=== PATIENT | female | born 1945 | race Two or more races ===

== ENCOUNTER 2017-06-21 17:41 | Inpatient (IN) | payer MEDICARE, MEDICAID ==
[~2017-06-21] VITALS: Ht 172.7 cm; Wt 74.8 kg
--- NOTE | 2017-06-21 17:59 | NUR ---
PT TO ED ROOM 06. BBRA FROM HOME. BIB RA FOR ALTERED MENTAL STATUS. CHANGED TO GOWN. SIDE RAISL UP. HOB ELEVATED. CONNECTED TO MONITOR. AWAITING EVALUATION BY ER PROVIDER.
[2017-06-21] MEDS ORDERED: IV NS 0.9% 500 ML BAG IV ONE (18:00)
--- NOTE | 2017-06-21 18:00 | NUR ---
XRAY AT BS
[2017-06-21 18:03] LABS: BASOPHILS # (AUTO) 0.1 /CMM (0.0-0.2); BASOPHILS % (AUTO) 1.1 % (0.0-2.0); EOSINOPHILS # (AUTO) 0.3 /CMM (0.0-0.7); EOSINOPHILS % (AUTO) 3.2 % (0.0-6.0); HEMATOCRIT 47 % (33-45); HEMOGLOBIN 16.5 g/dL (11.5-14.8); LYMPHOCYTES # (AUTO) 2.1 /CMM (0.8-4.8); LYMPHOCYTES % (AUTO) 19.6 % (20.0-44.0); MEAN CORPUSCULAR HEMOGLOBIN 33 PG (26.0-33.0); MEAN CORPUSCULAR HGB CONC 35 g/dl (31.0-36.0); MEAN CORPUSCULAR VOLUME 94 fL (82-100); MONOCYTES # (AUTO) 0.9 /CMM (0.1-1.30); MONOCYTES % (AUTO) 8.5 % (2.0-12.0); NEUTROPHILS # (AUTO) 7.5 /CMM (1.8-8.9); NEUTROPHILS % (AUTO) 67.6 % (43.0-81.0); PLATELET COUNT (AUTO) 228 /CMM (150-450); RDW COEFFICIENT OF VARIATION 12.6 (11.5-15.0); RED BLOOD CELL COUNT(AUTO) 5.01 MIL/uL (4.0-5.2); WHITE BLOOD COUNT (AUTO) 10.9 K/uL (4.3-11.0)
[2017-06-21 18:08] LABS: APPEARANCE,URINE Clear (CLEAR); BILIRUBIN,URINE SMALL (NEGATIVE); BLOOD, URINE Moderate Ery/uL (NEGATIVE); COLOR,URINE Yellow (YELLOW); KETONES,URINE 80 (NEGATIVE); LEUKOCYTE ESTERASE ,URINE Negative (NEGATIVE); NITRITE, URINE Negative (NEGATIVE); PH,URINE 5.5 (5.0-8.0); PROTEIN,URINE Negative (NEGATIVE); UGLUCOSE Negative (NEGATIVE); UROBILINOGEN,URINE 0.2 EU/dL (0.2)
[2017-06-21 18:13] LABS: CALCIUM, SERUM 9.6 mg/dL (8.5-10.1); CARBON DIOXIDE 24 mmol/L (21-32); CHLORIDE 93 mmol/L (98-107); CREATININE 0.7 mg/dL (0.6-1.3); GLUCOSE 107 mg/dL (74-106); POTASSIUM 4.6 mmol/L (3.5-5.1); SODIUM SERUM 126 mmol/L (136-145); UREA NITROGEN, BLOOD 14 mg/dL (7-18)
[2017-06-21 18:19] LABS: ALANINE AMINOTRANSFERASE 28 U/L (12-78); ALBUMIN 3.9 g/dL (3.4-5.0); ALCOHOL, BLOOD < 3 mg/dL (0-0); ALKALINE PHOSPHATASE 68 U/L (46-116); ASPARTATE AMINOTRANSFERASE 23 U/L (15-37); BILIRUBIN,DIRECT 0.1 mg/dL (0.0-0.2); BILIRUBIN,TOTAL 0.6 mg/dL (0.2-1.0); TOTAL PROTEIN, SERUM 7.7 g/dL (6.4-8.2)
[2017-06-21 18:20] LABS: TROPONIN I < 0.017 ng/mL (0.00-0.056)
[2017-06-21 18:22] LABS: BACTERIA,URINE None seen /HPF (None Seen); SQUAMOUS EPITHELIAL CELL,UR Few /HPF (None Seen); WBC,URINE 0-2 /HPF (0-3)
[2017-06-21] MEDS ORDERED: PRIM50TA PO (18:25)
[2017-06-21] MEDS ORDERED: TEMA30CA PO (18:25)
[2017-06-21] MEDS ORDERED: ASPI-1169 PO (18:25)
[2017-06-21] MEDS ORDERED: MYRBETRIQ PO (18:25)
[2017-06-21] MEDS ORDERED: DIVA500T7 PO (18:25)
[2017-06-21] MEDS ORDERED: SERT50TA PO (18:25)
[2017-06-21] MEDS ORDERED: LEVO500T90 PO (18:25)
[2017-06-21] MEDS ORDERED: PROP20TA22 PO (18:25)
[2017-06-21] MEDS ORDERED: ARIP5TAB20 PO (18:25)
[2017-06-21 18:35] LABS: ACETAMINOPHEN < 2 ug/ml (10-30); SALICYLATE 3.2 mg/dL (2.8-20.0)
[2017-06-21 18:39] LABS: SERUM AMMONIA < 10 umol/L (11-32)
--- NOTE | 2017-06-21 18:40 | NUR ---
Patient is resting comfortably in bed with eyes closed. Easily aroused. VSS
[2017-06-21 18:42] LABS: THYROID STIMULATING HORMONE 4.475 uIU/mL (0.358-3.74)
--- NOTE | 2017-06-21 18:54 | NUR ---
PT PLACED ON 3 L/M O2 VIA NC. O2 SAT UP TO 95% FROM 90%.
[2017-06-21] MEDS ORDERED: IV NS 0.9% 1,000 ML BAG IV ONE (19:00)
--- NOTE | 2017-06-21 19:06 | NUR ---
CALLED TESS CUSTOMER ACCOUNT MANAGER.
--- NOTE | 2017-06-21 19:16 | NUR ---
REPORT RECEIVED FROM PAVAN HUMPHREY FOR TYRON.
--- NOTE | 2017-06-21 21:52 | NUR ---
ATTEMPTED TO CALL REPORT, FREEDOM STATED NURSE WAS WITH ANOTHER PATIENT. WILL CALL BACK.
--- NOTE | 2017-06-21 22:15 | NUR ---
REPORT GIVEN TO PAVAN ATWOOD FOR TYRON.
[2017-06-21 22:30] VITALS: BP 154/63
--- NOTE | 2017-06-21 22:35 | NUR ---
IV removed. Catheter intact and site benign. Pressure and 4x4 applied to site. No bleeding noted.
[2017-06-21] MEDS ORDERED: MAG HYDROX/AL HYDROX/SIMETH 30 ML UDC PO PRN (23:00)
[2017-06-21] MEDS ORDERED: ZOLPIDEM TARTRATE 5 MG TABLET PO PRN (23:00)
[2017-06-21] MEDS ORDERED: ACETAMINOPHEN 325 MG TABLET PO PRN (23:00)
[2017-06-21] MEDS ORDERED: LORAZEPAM 0.5 MG TABLET PO PRN (23:00)
[2017-06-21] MEDS ORDERED: MAGNESIUM HYDROXIDE 30 ML UDC PO PRN (23:00)
[2017-06-22] MEDS ORDERED: ACETAMINOPHEN 325 MG TABLET PO PRN (00:30)
[2017-06-22] MEDS ORDERED: LEVOFLOXACIN (500MG) 500 MG TABLET PO SCH (00:30)
--- NOTE | 2017-06-22 01:41 | NUR ---
Admission Notes: Pt is a 71 years old white female BIB [facility] from [facility] ED at 2230 last night. Pt reportedly has had a very recent altered mental status noted by her daughter who accompanied the pt to [facility] ED when pt was put on a 5150 legal hold for being Gravely Disable. Upon pt's arrival at [facility] she was selectively mute but occasionally answering questions by either nodding her head or a one word "yes or "no". At this time pt is selectively mute but her vital signs are WNL. Pt's past medical & psych history are both reportedly unknown per Khadijah (RN) from ER .
--- NOTE | 2017-06-22 01:54 | NUR ---
Pt reportedly lives alone at home.
[2017-06-22] MEDS ORDERED: ACETAMINOPHEN 325 MG TABLET ONE (05:23)
--- NOTE | 2017-06-22 06:07 | NUR ---
At 0440 this morning pt was noted to be shaking. Her vital signs were PE=827/88, P=108, T=99.1, O2 sat=95%, R=20. Also her blood sugar was 116 mg/dl. Tylenol po was given & Temp came down to 98.9, P=88, & KK=584/80. Pt remains selectively mute & resistant to care. She is also on Levaquin & Inderal.
[2017-06-22 06:42] LABS: BASOPHILS % (AUTO) 0.2 % (0.0-2.0); EOSINOPHILS # (AUTO) 0.3 /CMM (0.0-0.7); EOSINOPHILS % (AUTO) 2.5 % (0.0-6.0); HEMATOCRIT 46 % (33-45); LYMPHOCYTES # (AUTO) 2.1 /CMM (0.8-4.8); LYMPHOCYTES % (AUTO) 17.8 % (20.0-44.0); MEAN CORPUSCULAR HEMOGLOBIN 33 PG (26.0-33.0); MEAN CORPUSCULAR HGB CONC 35 g/dl (31.0-36.0); MEAN CORPUSCULAR VOLUME 96 fL (82-100); MONOCYTES # (AUTO) 1.3 /CMM (0.1-1.30); MONOCYTES % (AUTO) 11.3 % (2.0-12.0); NEUTROPHILS # (AUTO) 7.9 /CMM (1.8-8.9); NEUTROPHILS % (AUTO) 68.2 % (43.0-81.0); PLATELET COUNT (AUTO) 199 /CMM (150-450); RDW COEFFICIENT OF VARIATION 12.4 (11.5-15.0); RED BLOOD CELL COUNT(AUTO) 4.78 MIL/uL (4.0-5.2); WHITE BLOOD COUNT (AUTO) 11.6 K/uL (4.3-11.0)
[2017-06-22 06:50] LABS: ALBUMIN 3.6 g/dL (3.4-5.0); BILIRUBIN,TOTAL 0.7 mg/dL (0.2-1.0); CALCIUM, SERUM 9.3 mg/dL (8.5-10.1); CREATININE 0.6 mg/dL (0.6-1.3); TOTAL PROTEIN, SERUM 7.4 g/dL (6.4-8.2)
[2017-06-22] MEDS ORDERED: TEMAZEPAM 15 MG CAPSULE PO PRN (08:30)
[2017-06-22 08:36] VITALS: BP 152/90
[2017-06-22] MEDS: ASPIRIN 81 MG TAB.CHEW PO SCH (08:57)
[2017-06-22] MEDS: THIAMINE HCL 100 MG TABLET PO SCH (08:57)
[2017-06-22] MEDS: CYANOCOBALAMIN 500 MCG TABLET PO SCH (08:58)
--- NOTE | 2017-06-22 08:58 | NUR ---
[id number]: GAVE ATIVAN 1 MG PO DUE TO SEVERE ANXIETY UPON PT REQUEST AND WILL CONTINUE TO MONITOR FOR EFFECTIVENESS OF MEDICATION
[2017-06-22] MEDS: PROPRANOLOL HCL 10 MG TABLET PO SCH ×2 (08:59→17:00)
[2017-06-22] MEDS: ENOXAPARIN SODIUM 40 MG/0.4 ML DISP.SYRIN SQ SCH (08:59)
--- NOTE | 2017-06-22 11:53 | NUR ---
[id number]: NOTIFIED PRECINCT I POLICE SERGEANT ASHLEY LOVELACE ABOUT NA= 131, CHOLESTEROL=96, ANION GAP=17, LDL CHOLESTEROL MEASURED= 116, HDL CHOLESTEROL= 78. PRECINCT I POLICE SERGEANT LUCY WILL REVIEW MEDICATIONS AND ADJUST ACCORDINGLY
[2017-06-22 16:00] VITALS: BP 103/70
[2017-06-22 19:35] VITALS: BP 161/94
[2017-06-22] MEDS: PRIMIDONE 50 MG TABLET PO SCH (21:12)
[2017-06-22] MEDS: QUETIAPINE FUMARATE 25 MG TABLET PO SCH (21:12)
[2017-06-22 23:00] VITALS: BP 137/70
[2017-06-23] MEDS ORDERED: Z GUARD REMEDY 2 OZ OINT TP PRN
[2017-06-23] MEDS: LEVOFLOXACIN (500MG) 500 MG TABLET PO SCH (01:23)
[2017-06-23 06:38] LABS: BASOPHILS % (AUTO) 0.6 % (0.0-2.0); EOSINOPHILS # (AUTO) 0.3 /CMM (0.0-0.7); EOSINOPHILS % (AUTO) 4.2 % (0.0-6.0); HEMATOCRIT 44 % (33-45); HEMOGLOBIN 15.2 g/dL (11.5-14.8); LYMPHOCYTES # (AUTO) 2.2 /CMM (0.8-4.8); LYMPHOCYTES % (AUTO) 28.1 % (20.0-44.0); MEAN CORPUSCULAR HEMOGLOBIN 33 PG (26.0-33.0); MEAN CORPUSCULAR HGB CONC 35 g/dl (31.0-36.0); MEAN CORPUSCULAR VOLUME 97 fL (82-100); MONOCYTES % (AUTO) 13.1 % (2.0-12.0); NEUTROPHILS # (AUTO) 4.2 /CMM (1.8-8.9); PLATELET COUNT (AUTO) 184 /CMM (150-450); RDW COEFFICIENT OF VARIATION 13.4 (11.5-15.0); RED BLOOD CELL COUNT(AUTO) 4.55 MIL/uL (4.0-5.2); WHITE BLOOD COUNT (AUTO) 7.7 K/uL (4.3-11.0)
[2017-06-23 06:42] LABS: CALCIUM, SERUM 8.8 mg/dL (8.5-10.1); CREATININE 0.6 mg/dL (0.6-1.3); POTASSIUM 3.9 mmol/L (3.5-5.1)
[2017-06-23 08:00] VITALS: BP 100/64
[2017-06-23] MEDS: ASPIRIN 81 MG TAB.CHEW PO SCH (08:30)
[2017-06-23] MEDS: PROPRANOLOL HCL 10 MG TABLET PO SCH ×2 (08:31→16:28)
[2017-06-23] MEDS: THIAMINE HCL 100 MG TABLET PO SCH (08:32)
[2017-06-23] MEDS: QUETIAPINE FUMARATE 25 MG TABLET PO SCH ×2 (08:32→21:21)
[2017-06-23] MEDS: ENOXAPARIN SODIUM 40 MG/0.4 ML DISP.SYRIN SQ SCH (08:33)
[2017-06-23] MEDS: Z GUARD REMEDY 2 OZ OINT TP SCH (08:33)
[2017-06-23] MEDS: CYANOCOBALAMIN 500 MCG TABLET PO SCH (08:33)
--- NOTE | 2017-06-23 14:24 | NUR ---
[id number]: NOTIFIED DR. HURTADO ABOUT PHYSICIAN CONSULT DUE TO MENTAL STATUS AND ALCOHOL ABUSE.
[2017-06-23 16:00] VITALS: BP 119/77
[2017-06-23 16:35] LABS: CREATINE KINASE, TOTAL 118 U/L (26-192)
[2017-06-23 16:45] LABS: VALPROIC ACID 5 ug/mL (50-100)
--- NOTE | 2017-06-23 17:14 | NUR ---
[id number]: CALLED RADIOLOGY AND SPOKE WITH ANTWAN WHO STATED THAT EEG CAN BE DONE TOMORROW MORNING.
[2017-06-23] MEDS: PRIMIDONE 50 MG TABLET PO SCH (22:05)
[2017-06-23] MEDS: DIVALPROEX SODIUM 500 MG TABLET.DR PO SCH (22:05)
[2017-06-24] MEDS: LEVOFLOXACIN (500MG) 500 MG TABLET PO SCH (01:11)
[2017-06-24 07:55] VITALS: BP 150/88
[2017-06-24] MEDS: ASPIRIN 81 MG TAB.CHEW PO SCH (08:22)
[2017-06-24] MEDS: CYANOCOBALAMIN 500 MCG TABLET PO SCH (08:22)
[2017-06-24] MEDS: PROPRANOLOL HCL 10 MG TABLET PO SCH ×2 (08:22→16:31)
[2017-06-24] MEDS: THIAMINE HCL 100 MG TABLET PO SCH (08:22)
[2017-06-24] MEDS: ENOXAPARIN SODIUM 40 MG/0.4 ML DISP.SYRIN SQ SCH (08:22)
[2017-06-24] MEDS: Z GUARD REMEDY 2 OZ OINT TP SCH (08:23)
[2017-06-24] MEDS: QUETIAPINE FUMARATE 25 MG TABLET PO SCH ×2 (08:24→21:27)
--- NOTE | 2017-06-24 11:17 | NUR ---
[id number]: CALLED RADIOLOGY SPOKE WITH WAI WHO WILL FOLLOW UP AND CALL WHEN THE EEG WILL BE DONE.
--- NOTE | 2017-06-24 12:27 | NUR ---
Initial Discharge Note: [place] [address] [place] [address]. Patient lives alone. When asked by SW about where patient wants to go after discharge, patient stated that she lives with her son and wants to continue living there. SW spoke with patient's [id number] [place] and son Chino, and they stated that patient does NOT live with them. The family stated that they are considering SNF placement. SW to follow up with MD and arrange safe and proper discharge.
[2017-06-24 16:00] VITALS: BP 150/88
--- NOTE | 2017-06-24 17:16 | NUR ---
[id number]: NOTIFIED DRAFTER PLUMBING ANDREWS ABOUT DR. HURTADO NOTES FOR 06/23/17 AND DRAFTER PLUMBING ANDREWS WILL REVIEW DR. HURTADO NOTE.
--- NOTE | 2017-06-24 19:30 | NUR ---
[facility] RN NOTE, RECEIVED PATIENT AWAKE AND IN BED, NO S/S OR COMPLAINTS OF PAIN AT THIS TIME. PATIENT IS DISPLAYING NO S/S OF APPARENT DISTRESS AT THIS TIME. PATIENT BREATHING IS UNLABORED WITH EQUAL RISE AND FALL OF THE CHEST. PATIENT IS ALERT AND ORIENTED X 1-2 ON ROOM AIR WITH A SPO2 97 %. PATIENT HAS FAMILY AT BED SIDE. PATIENT IS MED COMPLAINT, DISORGANIZED, ANXIOUS, CONFUSED AT TIMES, AND NEEDS REORIENTATION. PATIENT DENIES SUICIDE IDEATIONS AND HOMICIDAL IDEATIONS AT THIS TIME BUT IS CONFUSED. PATIENT ASSISTED WITH TURNING AND REPOSITIONING Q2HR AND PRN FOR COMFORT AND CIRCULATION. PATIENT HAS NO NEEDS AT THIS TIME. PATIENT EDUCATED ON THE USE OF THE CALL SINGH. PATIENT BED SIDE RAILS ARE UP X 2 FOR SAFETY, BED IS LOCKED AND LOW WILL CONTINUE TO MONITOR Q 15 MIN AND MAINTAIN SAFETY WITH THE HELP OF STAFF.
[2017-06-24 19:53] VITALS: BP 142/90
[2017-06-24] MEDS: PRIMIDONE 50 MG TABLET PO SCH (21:27)
[2017-06-24] MEDS: DIVALPROEX SODIUM 500 MG TABLET.DR PO SCH (21:27)
[2017-06-25] MEDS: LEVOFLOXACIN (500MG) 500 MG TABLET PO SCH (00:16)
[2017-06-25 07:41] LABS: CREATININE 0.6 mg/dL (0.6-1.3); POTASSIUM 3.7 mmol/L (3.5-5.1)
[2017-06-25 08:00] VITALS: BP 144/85
[2017-06-25] MEDS: ENOXAPARIN SODIUM 40 MG/0.4 ML DISP.SYRIN SQ SCH (08:57)
[2017-06-25] MEDS: PROPRANOLOL HCL 10 MG TABLET PO SCH ×2 (09:00→17:00)
[2017-06-25] MEDS: QUETIAPINE FUMARATE 25 MG TABLET PO SCH ×2 (09:00→21:26)
[2017-06-25] MEDS: THIAMINE HCL 100 MG TABLET PO SCH (09:00)
[2017-06-25] MEDS: ASPIRIN 81 MG TAB.CHEW PO SCH (09:00)
[2017-06-25] MEDS: CYANOCOBALAMIN 500 MCG TABLET PO SCH (09:00)
--- NOTE | 2017-06-25 10:00 | NUR ---
[facility]PS/RN-NOTES PATIENT REFUSED ALL P.O MEDICATIONS DESPITE EXPLANATIONS RISK AND BENEFITS. PATIENT STATED" ITS TOO MUCH,NO ". OFFERED X3.
[2017-06-25] MEDS: Z GUARD REMEDY 2 OZ OINT TP SCH (10:11)
[2017-06-25] MEDS: LORAZEPAM 0.5 MG TABLET PO PRN (13:19)
--- NOTE | 2017-06-25 13:20 | NUR ---
rn notes administered ativan 1 mg po prn for anxiety, irritable , confused, refused to eat. v/s taken bp-140/80, p-85, continued monitoring.
--- NOTE | 2017-06-25 14:10 | NUR ---
Discharge Planning: CARL called and spoke with patient's [id number] Jyoti, . Jyoti stated that she spoke with patient's psychiatrist and that the family is still considering if patient is able to move in with them or if she need SNF placement. Jyoti asked if CARL can call back on so that the family has time to consider their options. CARL to follow up.
[2017-06-25 16:00] VITALS: BP 100/80
[2017-06-25 20:10] VITALS: BP 104/65
[2017-06-25] MEDS: DIVALPROEX SODIUM 500 MG TABLET.DR PO SCH (21:26)
[2017-06-25] MEDS: PRIMIDONE 50 MG TABLET PO SCH (21:26)
[2017-06-26] MEDS: LEVOFLOXACIN (500MG) 500 MG TABLET PO SCH (01:07)
[2017-06-26 08:00] VITALS: BP 103/54
[2017-06-26] MEDS: DIVALPROEX SODIUM 500 MG TABLET.DR PO SCH ×2 (08:29→20:05)
[2017-06-26] MEDS: QUETIAPINE FUMARATE 25 MG TABLET PO SCH ×2 (08:29→20:05)
[2017-06-26] MEDS: CYANOCOBALAMIN 500 MCG TABLET PO SCH (08:29)
[2017-06-26] MEDS: ASPIRIN 81 MG TAB.CHEW PO SCH (08:29)
[2017-06-26] MEDS: THIAMINE HCL 100 MG TABLET PO SCH (08:29)
[2017-06-26] MEDS: PROPRANOLOL HCL 10 MG TABLET PO SCH ×2 (08:30→16:34)
[2017-06-26] MEDS: ENOXAPARIN SODIUM 40 MG/0.4 ML DISP.SYRIN SQ SCH (08:51)
[2017-06-26] MEDS: Z GUARD REMEDY 2 OZ OINT TP SCH (08:54)
--- NOTE | 2017-06-26 15:25 | NUR ---
Discharge Planning: SW spoke with patient regarding discharge. Patient is oriented to self, place and time. Patient stated that she does not want to go to any alternative placement. Patient stated that she feels safe and comfortable at home and wishes to return upon discharge. SW engaged patient in a conversation about SNF and informed patient that it can be temporary, until patient feels strong enough and healthy enough to go home. Patient stated, again, that she is not interested and that she wishes to return home. CARL called and left a voicemail for patient's osyjlfuj-ae-jkp [place],
[2017-06-26 15:43] VITALS: BP 116/69
--- NOTE | 2017-06-26 16:15 | NUR ---
Discharge Planning: CARL spoke with patient's [id number]-pmn Jyoti, . Jyoti stated that, ideally, they would like patient to go to SNF for a couple of weeks so that she becomes stronger and is able to manage medication properly. Jyoti stated that the family visits patient every evening and that they will speak with her about the plan regarding SNF placement. CARL to fax to facilities tomorrow morning.
[2017-06-26 20:00] VITALS: BP 137/76
--- NOTE | 2017-06-26 20:17 | NUR ---
FAMILY AT THE BEDSIDE, REQUESTING TO ADMINISTER PATIENT'S MEDICATIONS NOW, DEPAKOTE 500 MG, SEROQUEL 12.5 MG AND FOR SLEEP TEMAZEPAM 30 MG PO GIVEN. VITALS 137/76, PULSE 87, 96% ON ROOM AIR. WILL CONTINUE TO MONITOR.
--- NOTE | 2017-06-26 20:21 | NUR ---
PATIENT AWAKE, ALERT, COOPERATIVE, AMBULATORY, NO ACUTE DISTRESS NOTED.
--- NOTE | 2017-06-26 21:56 | NUR ---
PATIENT SLEEPING AT THIS TIME, MYSOLINE NOT ADMINISTERED. WILL TRY LATER IN AN HOUR.
[2017-06-26] MEDS: PRIMIDONE 50 MG TABLET PO SCH (22:00)
--- NOTE | 2017-06-26 23:09 | NUR ---
PATIENT ASLEEP, MYSOLINE 800 MG PO NOT GIVEN. ATTEMPTING TO WAKE PATIENT UP, BUT NO SUCCESS
[2017-06-27] MEDS: LEVOFLOXACIN (500MG) 500 MG TABLET PO SCH (01:00)
--- NOTE | 2017-06-27 01:11 | NUR ---
LEVAQUIN PO DUE AT 0100 AM, NOT GIVEN, PATIENT SLEEPING, SNORING, WITNESSED BY CHARGE NURSE. WILL ASK PHARMACY TO CHANGE THE TIME AND BE GIVEN IN THE DAYTIME OR EARLY 2100.
[2017-06-27 08:00] VITALS: BP 100/59
[2017-06-27] MEDS: DIVALPROEX SODIUM 500 MG TABLET.DR PO SCH ×2 (08:38→20:29)
[2017-06-27] MEDS: CYANOCOBALAMIN 500 MCG TABLET PO SCH (08:38)
[2017-06-27] MEDS: ASPIRIN 81 MG TAB.CHEW PO SCH (08:39)
[2017-06-27] MEDS: QUETIAPINE FUMARATE 25 MG TABLET PO SCH ×2 (08:39→20:29)
[2017-06-27] MEDS: THIAMINE HCL 100 MG TABLET PO SCH (08:39)
[2017-06-27] MEDS: PROPRANOLOL HCL 10 MG TABLET PO SCH ×2 (08:40→16:12)
[2017-06-27] MEDS: Z GUARD REMEDY 2 OZ OINT TP SCH (08:40)
[2017-06-27] MEDS: ENOXAPARIN SODIUM 40 MG/0.4 ML DISP.SYRIN SQ SCH (08:51)
--- NOTE | 2017-06-27 12:26 | NUR ---
Discharge Planning: faxed inquiries to [place] [address] [address], [place] / fax number [phone] and [facility], [address] [place] [address]. [place] [address]; / fax # [phone]
--- NOTE | 2017-06-27 13:36 | NUR ---
Discharge Planning: SW was notified by Benjie from [facility] [address] [facility], [place] / fax number [phone] that patient's family will be touring the facility today, 06/27, at 5pm. SW to follow up after the weekend.
[2017-06-27 16:00] VITALS: BP 133/59
[2017-06-27 20:00] VITALS: BP 108/63
--- NOTE | 2017-06-27 20:31 | NUR ---
AMBIEN 5 MG TAB 1 PO GIVEN FOR INSOMNIA.
[2017-06-27] MEDS ORDERED: LEVOFLOXACIN (500MG) 500 MG TABLET PO SCH (21:00)
[2017-06-27] MEDS: PRIMIDONE 50 MG TABLET PO SCH (22:00)
[2017-06-28] MEDS ORDERED: PRIMIDONE 250 MG TABLET ONE ×2 (00:05→23:11)
--- NOTE | 2017-06-28 00:28 | NUR ---
Mysoline tablet not given, due @ 2200 dose not available per Rn Tableau Developer.
--- NOTE | 2017-06-28 00:31 | NUR ---
PATIENT FAST ASLEEP AT THIS TIME
[2017-06-28 08:00] VITALS: BP 127/77
[2017-06-28] MEDS: ENOXAPARIN SODIUM 40 MG/0.4 ML DISP.SYRIN SQ SCH (09:18)
[2017-06-28] MEDS: DIVALPROEX SODIUM 500 MG TABLET.DR PO SCH ×2 (09:19→21:13)
[2017-06-28] MEDS: CYANOCOBALAMIN 500 MCG TABLET PO SCH (09:19)
[2017-06-28] MEDS: QUETIAPINE FUMARATE 25 MG TABLET PO SCH ×2 (09:19→21:13)
[2017-06-28] MEDS: PROPRANOLOL HCL 10 MG TABLET PO SCH ×2 (09:19→16:30)
[2017-06-28] MEDS: ASPIRIN 81 MG TAB.CHEW PO SCH (09:19)
[2017-06-28] MEDS: THIAMINE HCL 100 MG TABLET PO SCH (09:19)
[2017-06-28] MEDS: Z GUARD REMEDY 2 OZ OINT TP SCH (09:20)
[2017-06-28 16:28] VITALS: BP 108/72
[2017-06-28 20:00] VITALS: BP 105/70
--- NOTE | 2017-06-28 22:01 | NUR ---
RESTORIL 30 MG CAP PO GIVEN FOR SLEEP PER PATIENT'S REQUEST
--- NOTE | 2017-06-28 22:52 | NUR ---
SPOKE TO DR. DRIVER, VERIFIED DOSE OF PRIMIDONE, THERE IS NO STOCK OF 50 MG TAB. DISCONTINUED CURRENT ORDER AND CHANGED IT TO PRIMIDONE 250 MG TAB 1 PO AT NIGHT.
[2017-06-28] MEDS: PRIMIDONE 250 MG TABLET PO SCH (23:16)
[2017-06-29 08:00] VITALS: BP 110/47
[2017-06-29] MEDS: THIAMINE HCL 100 MG TABLET PO SCH (08:32)
[2017-06-29] MEDS: ASPIRIN 81 MG TAB.CHEW PO SCH (08:32)
[2017-06-29] MEDS: CYANOCOBALAMIN 500 MCG TABLET PO SCH (08:33)
[2017-06-29] MEDS: DIVALPROEX SODIUM 500 MG TABLET.DR PO SCH ×2 (08:33→20:39)
[2017-06-29] MEDS: PROPRANOLOL HCL 10 MG TABLET PO SCH ×2 (08:42→17:00)
[2017-06-29] MEDS: QUETIAPINE FUMARATE 25 MG TABLET PO SCH ×2 (08:43→20:39)
[2017-06-29] MEDS: ENOXAPARIN SODIUM 40 MG/0.4 ML DISP.SYRIN SQ SCH (08:45)
[2017-06-29] MEDS: Z GUARD REMEDY 2 OZ OINT TP SCH (08:48)
[2017-06-29 15:58] VITALS: BP 100/67
[2017-06-29 19:48] VITALS: BP 121/74
[2017-06-29] MEDS: LORAZEPAM 0.5 MG TABLET PO PRN (20:39)
[2017-06-29] MEDS: PRIMIDONE 250 MG TABLET PO SCH (21:44)
--- NOTE | 2017-06-30 01:52 | NUR ---
Pt has been anxious, repetitive, difficult to redirect, argumentative, & intrusive but med compliant w/o any promptings.
[2017-06-30 08:00] VITALS: BP 111/60
[2017-06-30] MEDS: QUETIAPINE FUMARATE 25 MG TABLET PO SCH ×2 (08:37→20:57)
[2017-06-30] MEDS: DIVALPROEX SODIUM 500 MG TABLET.DR PO SCH ×2 (08:37→20:56)
[2017-06-30] MEDS: CYANOCOBALAMIN 500 MCG TABLET PO SCH (08:37)
[2017-06-30] MEDS: PROPRANOLOL HCL 10 MG TABLET PO SCH ×2 (08:37→16:32)
[2017-06-30] MEDS: THIAMINE HCL 100 MG TABLET PO SCH (08:37)
[2017-06-30] MEDS: ASPIRIN 81 MG TAB.CHEW PO SCH (08:37)
[2017-06-30] MEDS: Z GUARD REMEDY 2 OZ OINT TP SCH (08:38)
[2017-06-30] MEDS: ENOXAPARIN SODIUM 40 MG/0.4 ML DISP.SYRIN SQ SCH (08:38)
--- NOTE | 2017-06-30 15:51 | NUR ---
Discharge Planning: SW spoke with patient's [id number]-uzx Jyoti and son Chino, . They stated that they really liked the facility [[facility]] and that they would like for patient to go there for a couple of weeks to get healthier. SW then had a long and thorough conversation with the patient in patient's comanche language [place] Citizen. Patient was concerned about what the facility would be like. SW explained to her and reassured that it is not a permanent placement. Patient agreed to go to facility. Patient to discharge tomorrow.
[2017-06-30 16:00] VITALS: BP 138/71
[2017-06-30 20:07] VITALS: BP 110/60
[2017-06-30] MEDS: PRIMIDONE 250 MG TABLET PO SCH (20:57)
[2017-07-01 06:37] LABS: BASOPHILS # (AUTO) 0.1 /CMM (0.0-0.2); EOSINOPHILS # (AUTO) 0.4 /CMM (0.0-0.7); EOSINOPHILS % (AUTO) 7.2 % (0.0-6.0); HEMATOCRIT 37 % (33-45); HEMOGLOBIN 12.7 g/dL (11.5-14.8); LYMPHOCYTES # (AUTO) 2.3 /CMM (0.8-4.8); LYMPHOCYTES % (AUTO) 37.9 % (20.0-44.0); MEAN CORPUSCULAR HEMOGLOBIN 33 PG (26.0-33.0); MEAN CORPUSCULAR HGB CONC 34 g/dl (31.0-36.0); MEAN CORPUSCULAR VOLUME 97 fL (82-100); MONOCYTES # (AUTO) 0.6 /CMM (0.1-1.30); MONOCYTES % (AUTO) 10.7 % (2.0-12.0); NEUTROPHILS # (AUTO) 2.6 /CMM (1.8-8.9); NEUTROPHILS % (AUTO) 43.2 % (43.0-81.0); PLATELET COUNT (AUTO) 176 /CMM (150-450); RDW COEFFICIENT OF VARIATION 13.1 (11.5-15.0); RED BLOOD CELL COUNT(AUTO) 3.82 MIL/uL (4.0-5.2)
[2017-07-01 06:57] LABS: CALCIUM, SERUM 8.6 mg/dL (8.5-10.1); CREATININE 0.4 mg/dL (0.6-1.3); MAGNESIUM 1.9 mg/dL (1.8-2.4); PHOSPHORUS 3.9 mg/dL (2.5-4.9); POTASSIUM 4.4 mmol/L (3.5-5.1)
[2017-07-01 08:00] VITALS: BP 107/56
[2017-07-01] MEDS: QUETIAPINE FUMARATE 25 MG TABLET PO SCH (08:02)
[2017-07-01] MEDS: ASPIRIN 81 MG TAB.CHEW PO SCH (08:02)
[2017-07-01 08:03] VITALS: BP 107/56
[2017-07-01] MEDS: CYANOCOBALAMIN 500 MCG TABLET PO SCH (08:03)
[2017-07-01] MEDS: THIAMINE HCL 100 MG TABLET PO SCH (08:03)
[2017-07-01] MEDS: PROPRANOLOL HCL 10 MG TABLET PO SCH (08:03)
[2017-07-01] MEDS: DIVALPROEX SODIUM 500 MG TABLET.DR PO SCH (08:03)
[2017-07-01] MEDS: Z GUARD REMEDY 2 OZ OINT TP SCH (08:04)
[2017-07-01] MEDS: ENOXAPARIN SODIUM 40 MG/0.4 ML DISP.SYRIN SQ SCH (08:04)
--- NOTE | 2017-07-01 10:29 | NUR ---
Discharge Note: Patient to discharge to [facility] [address] [facility] / fax number [phone] via ambulance transportation arranged by forensic social worker, trip #[id number]. Patients son and ojnzrujg-ti-yft [[place] and [place]] [phone] are aware and in agreement with the discharge. SW informed Benjie from [facility] who stated that patient will be in room 105b. SW spoke with patient in Uruguayan. Patient was alert and oriented to person, place and time. Patient denied suicidal and homicidal ideation. Patient denied visual and auditory hallucinations. Patient will be under the care of cloth calender Dr. Chan [address] [facility] [address] [address] [phone] Juares [address] [facility] [address] [address] [phone] at the facility.
--- NOTE | 2017-07-01 12:45 | NUR ---
[facility]/RN PATIENT CLEARED FOR DISCHARGE TO [facility] BY DR GLEASON AND DR AYALA. MEDICATIONS RECONCILED BY BOTH DR'S, EXIT CARE, AFTERCARE PLAN AND MEDICATIONS EXPLAINED TO PATIENT, VERBALIZED UNDERSTANDING, BELONGINGS RETURNED AND SIGNED FOR BY PATIENT,SPOKE WITH DAUGHTER IN LAW ELÍAS AND SHE STATED THAT PATIENT'S RING WENT HOME WITH SON FRANCISCO. PATIENT DENIES SI/HI/AH UPON DISCHARGE, PSYCHIATRIC TREATMENT PLANS MET,REPORT CALLED TO FACILITY, D/C PHOTOS TAKEN, LEFT UNIT CALM, COOPERATIVE, NO DISTRESS WITH AMBULANCE TRANSPORT AT SIDE.
== END 2017-07-01 11:45 | DRG 885 ==
LOC: ER 17:49 → GPS 21:56
PROVIDERS: ADMIT Psychiatry & Neurology Psychiatry; ATTEND Nurse Practitioner Acute Care
DX: F29 Unspecified psychosis not due to a substance or known physiological condition (principal); G93.40 Encephalopathy, unspecified; E87.2 Acidosis; E87.1 Hypo-osmolality and hyponatremia; F03.91 Unspecified dementia, unspecified severity, with behavioral disturbance; F10.239 Alcohol dependence with withdrawal, unspecified; F10.27 Alcohol dependence with alcohol-induced persisting dementia; I10 Essential (primary) hypertension; Z73.6 Limitation of activities due to disability; Z87.440 Personal history of urinary (tract) infections; Y90.0 Blood alcohol level of less than 20 mg/100 ml
CPT/HCPCS: 36415; 70450-TC; 71045-TC; 80048-TC; 80053-TC; 80061-TC; 80076-TC; 80164-TC; 81000-TC; 82140-TC; 82550-TC; 82962-TC; 83605-TC; 83735-TC; 84100-TC; 84439-TC; 84443-TC; 84484-TC; 85025-TC; 85730-TC; 87081-TC; 87086-TC; 95819-TC; 97116-TC; 97530-TC; A4606; G0480; J1650; J7040; Z7610

== ENCOUNTER 2017-11-18 14:35 | Inpatient (IN) | payer MEDICARE, MEDICAID ==
[~2017-11-18] VITALS: Ht 165.1 cm; Wt 68.0 kg
[~2017-11-18 14:35] MED LIST: ARIP5TAB20 PO; ASPI-1169 PO; DIVA-78 PO; LEVO500T90 PO; MYRBETRIQ PO; PRIM50TA PO; PROP20TA19 PO; SERT50TA PO; TEMA30CA PO
--- NOTE | 2017-11-18 14:50 | NUR ---
BB SON FOR WATERY STOOL WITH BLOOD X THIS AM. REPORTS INCREASING ANXIETY FOR 2 MOS. SEEN BY MD FOR SONIA. VSS. SAFETY AND COMFORT MEASURES PROVIDED. WILL MONITOR.
--- NOTE | 2017-11-18 15:00 | NUR ---
IV ACCESS STARTED. BLOOD DRAWN FOR LABS. MEDICATED ORDERED.
[2017-11-18] MEDS ORDERED: LOPERAMIDE HCL (2 MG CAP) 2 MG CAPSULE PO ONE ×2 (15:30→15:41)
[2017-11-18] MEDS ORDERED: IV NS 0.9% 1,000 ML BAG IV ONE ×2 (15:30)
[2017-11-18 15:34] LABS: BASOPHILS % (AUTO) 0.4 % (0.0-2.0); EOSINOPHILS % (AUTO) 1.2 % (0.0-6.0); HEMATOCRIT 46 % (33-45); HEMOGLOBIN 15.5 g/dL (11.5-14.8); LYMPHOCYTES # (AUTO) 1.5 /CMM (0.8-4.8); LYMPHOCYTES % (AUTO) 18.7 % (20.0-44.0); MEAN CORPUSCULAR HGB CONC 34 g/dl (31.0-36.0); MEAN CORPUSCULAR VOLUME 93 fL (82-100); MONOCYTES # (AUTO) 0.6 /CMM (0.1-1.30); NEUTROPHILS # (AUTO) 5.7 /CMM (1.8-8.9); NEUTROPHILS % (AUTO) 71.7 % (43.0-81.0); PLATELET COUNT (AUTO) 225 /CMM (150-450); RED BLOOD CELL COUNT(AUTO) 4.91 MIL/uL (4.0-5.2); WHITE BLOOD COUNT (AUTO) 7.9 K/uL (4.3-11.0)
[2017-11-18 15:43] LABS: CALCIUM, SERUM 10.1 mg/dL (8.5-10.1); CREATININE 0.9 mg/dL (0.6-1.3); POTASSIUM 4.5 mmol/L (3.5-5.1)
[2017-11-18 15:48] LABS: INR 0.98 (0.85-1.15)
[2017-11-18 15:49] LABS: ALBUMIN 3.4 g/dL (3.4-5.0); BILIRUBIN,DIRECT 0.2 mg/dL (0.0-0.2); BILIRUBIN,TOTAL 0.6 mg/dL (0.2-1.0); TOTAL PROTEIN, SERUM 7.4 g/dL (6.4-8.2)
[2017-11-18 17:05] LABS: APPEARANCE,URINE SL CLOUDY (CLEAR); BILIRUBIN,URINE 1+ (NEGATIVE); BLOOD, URINE 2+ Ery/uL (NEGATIVE); COLOR,URINE YELLOW (YELLOW); KETONES,URINE 2+ (NEGATIVE); LEUKOCYTE ESTERASE ,URINE NEGATIVE (NEGATIVE); NITRITE, URINE NEGATIVE (NEGATIVE); PH,URINE 5.5 (5.0-8.0); PROTEIN,URINE NEGATIVE (NEGATIVE); UGLUCOSE NEGATIVE (NEGATIVE); UROBILINOGEN,URINE 0.2 EU/dL (0.2)
[2017-11-18 17:10] LABS: BACTERIA,URINE Few /HPF (None Seen); SQUAMOUS EPITHELIAL CELL,UR Few /HPF (None Seen)
[2017-11-18] MEDS ORDERED: OMEG1CAP55 PO (17:31)
[2017-11-18] MEDS ORDERED: LORA-259 PO (17:31)
[2017-11-18] MEDS ORDERED: THIA100T74 PO (17:31)
[2017-11-18] MEDS ORDERED: QUET25TA PO (17:31)
[2017-11-18] MEDS ORDERED: IV NS 0.9% 1,000 ML IV PRN (17:44)
[2017-11-18] MEDS ORDERED: ACETAMINOPHEN 325 MG TABLET PO PRN (18:00)
[2017-11-18] MEDS ORDERED: HYDROCODONE/APAP 5/325MG 1 EACH TABLET PO PRN (18:00)
[2017-11-18] MEDS ORDERED: Z GUARD REMEDY 2 OZ OINT TP PRN (18:00)
[2017-11-18] MEDS ORDERED: MAGNESIUM HYDROXIDE 30 ML UDC PO PRN (18:00)
[2017-11-18] MEDS ORDERED: MAG HYDROX/AL HYDROX/SIMETH 30 ML UDC PO PRN (18:00)
[2017-11-18] MEDS ORDERED: ONDANSETRON HCL/PF 4 MG/2 ML VIAL IVP PRN (18:00)
--- NOTE | 2017-11-18 18:12 | NUR ---
REPORT GIVEN TO DEBBIE BROWNE FOR MS.
[2017-11-18 18:45] VITALS: BP 151/91
[2017-11-18] MEDS: ENOXAPARIN SODIUM 30 MG/0.3 ML DISP.SYRIN SQ SCH ×2 (18:45→19:41)
[2017-11-18] MEDS: QUETIAPINE FUMARATE 25 MG TABLET PO SCH (18:45)
--- NOTE | 2017-11-18 18:45 | NUR ---
RN ADMITTING NOTES: REC'D REPORT FROM PAVAN CULLEN. PT TRANSFERRED VIA GURNEY ACCOMPANIED BY MANAGER MAINTENANCE & SON. PT IS A/O X 2 W/ CONFUSION (PER SON), UKRAINIAN SPEAKING ONLY. PT IS AMBULATORY W/ SOME ASSISTANCE. HAS R AC G20, PL, PATENT & INTACT W/ NO S/SX OF INFECTION NOTED W/ NS RUNNING X 2L, WIDE OPEN. PT WEARING HER DENTURES (BOTH UPPER / LOWER). ALL BELONGINGS CHECKED BY MANAGER MAINTENANCE (SENT HOME C/O SON). ROUTINE ASSESSMENT DONE. FACIAL RASHES NOTED, WOUND CONSULT ORDERED, PICTURES TAKEN. PT ORIENTED TO ROOM. PROVIDED COMFORT & SAFETY ENVIRONMENT. KEPT WELL RESTED. NEEDS ATTENDED. BED KEPT LOW & IN LOCKED POS. CALL LIGHT PLACED W/IN REACH. ENDORSED TO PM RN FOR TYRON.
[2017-11-18 20:00] VITALS: BP 159/68
--- NOTE | 2017-11-18 20:02 | NUR ---
RN ALIVIA NOTES PATIENT IS ALERT AND ORIENTED X 3. NO SIGNS OF WATERY OR BLOODY STOOL. ABLE TO CONVERSE IN BASIC FRENCH. NO IV LINE NOTED ON PATIENT. IV LINE PULLED OUT PER DAY SHIFT NURSE. OFFERED IV LINE INSERTION TO PATIENT FOR HYDRATION. EXPLAINED RISKS AND BENEFITS AND OFFERED 3 X TO PATIENT AND STILL REFUSED. PATIENT DRINKS FLUIDS (WATER/JUICE) WITH NO DIFFICULTY. WILL CONTINUE TO MONITOR PATIENT.
[2017-11-18] MEDS: PRIMIDONE 50 MG TABLET PO SCH (21:46)
[2017-11-18] MEDS ORDERED: LORAZEPAM 1 MG TABLET PO PRN (22:00)
--- NOTE | 2017-11-19 04:00 | NUR ---
RN NOTES PATIENT REFUSED 04:00AM VITAL SIGNS. EXPLAINED RISKS AND BENEFITS AND OFFERED 3 TIMES, PATIENT STILL REFUSED.
--- NOTE | 2017-11-19 07:45 | NUR ---
RN NOTE RECEIVED PATIENT AWAKE IN BED. PATIENT IS ALERT AND ORIENTED X 3, SHE IS ABLE TO VERBALIZE NEEDS IN HER TAKOT[place] LANGUAGE. BREATHING EVEN AND UNLABORED WITH NO DISTRESS NOTED. PATIENT DENIES ANY PAIN AT THIS TIME. NO IV LINE NOTED ON PATIENT, FROM PREVIOUS SHIFT PATIENT REMOVED HER IV LINE. OFFERED IV LINE INSERTION TO PATIENT, EXPLAINED RISKS AND BENEFITS X3 AND PATIENT STILL REFUSED. WILL ENCOURAGE PATIENT TO DRINK FLUIDS THROUGHOUT SHIFT. BED ALARM IN PLACE, ALL SAFETY MEASURES DONE. BED LOW AND LOCKED POSITION. PLACED CALL LIGHT WITH IN REACH. WILL CONTINUE TO MONITOR.
[2017-11-19] MEDS: ASPIRIN 81 MG TAB.CHEW PO SCH (08:49)
[2017-11-19] MEDS: THIAMINE HCL 100 MG TABLET PO SCH (08:50)
[2017-11-19] MEDS: SERTRALINE HCL 50 MG TABLET PO SCH (08:50)
--- NOTE | 2017-11-19 11:05 | NUR ---
RN NOTE PATIENT CONFUSED AND RESTLESS, NOTIFIED MD DR GARCIAS TO GET AN ORDER FOR A 1:1 SITTER FOR PATIENT. ORDERED WAS RECEIVED, OK FOR 1:1 SITTER CARRIED AND NOTED. PATIENT WAS MOVED FROM 106 TO 116-1
--- NOTE | 2017-11-19 14:20 | NUR ---
RN NOTE MD DR GARCIAS NOTIFIED ABOUT PATIENT REFUSING CT SCAN OF THE HEAD PROCEDURE.
[2017-11-19] MEDS ORDERED: HALOPERIDOL LACTATE INJ 5 MG/ML VIAL IM PRN (14:30)
--- NOTE | 2017-11-19 14:37 | NUR ---
PATIENT HIGH RISK FOR ELOPEMENT,FOUND OUTSIDE UNIT WANDERING,OBTAINED SITTER AND AWAITS PSYCHE CONSULT.
[2017-11-19 16:00] VITALS: BP 145/83
[2017-11-19 16:33] VITALS: BP 145/83
[2017-11-19] MEDS: QUETIAPINE FUMARATE 25 MG TABLET PO SCH (17:20)
[2017-11-19] MEDS: DIVALPROEX SODIUM 125 MG CAP.SPRINK PO SCH (17:20)
--- NOTE | 2017-11-19 19:15 | NUR ---
MS/OBJECTS CONSERVATOR; RECEIVED PT'S REPORTS FROM THE DAY SHIFT RN FOR CONTINUITY OF CARE. AT THIS TIME PT IN B3ED AWAKE QUIET. BREATHING NON LABORED. NO IV LINE PER REPOTS FROM THE DAY SHIFT RN PT PULLED IV AND REFUSED TO HAV IV LINE AND MD IS AWARE. BED ON LOWER POSITIONAND LOCKED FOR SAFETY. SIDE RAILS X 3 ARE UP FOR SAFETY. CALL LIGHT WITHIN REACH. SITTER PRESENT . WILL CONTINUE TO MONITOR.
--- NOTE | 2017-11-19 19:30 | NUR ---
MS/CLOTH BLEACHING RANGE OPERATOR CHIEF; PT SIT UP IN BED AND TALKING TO ME BUT UNABLE TO UNDERSTAND WHAT SHE WAS TALKING. PER REPORT PT IS CONGOLESE SPEAKING. AND THEN PT EATING VANILLA PUDDING.
--- NOTE | 2017-11-19 19:34 | NUR ---
RN NOTE PATIENT REMAINED CALM, COLLECTIVE, AND STABLE. PATIENT WAS ABLE TO TAKE HER MEDICATIONS. NO ACUTE DISTRESS NOTED. PATIENT REMAINS WITH O:1 SITTER AT BEDSIDE. WILL ENDORSE TO NEXT SHIFT TO CONTINUE CONTINUITY OF CARE.
--- NOTE | 2017-11-19 19:35 | NUR ---
MS/CONICAL MIXER; PT GETUP AND WENT TO THE BATHROOM AND NOTED SHE VOIDED 300 ML CLEAR YELLOW URINE NO BM. AND THEN SHE WENT BACK TO BED. PT AMBULATE WITH STEADY GAIT. CONTINUE TO MONITOR.
--- NOTE | 2017-11-19 20:15 | NUR ---
MS/WEAPONS OFFICER NAVAL ACTIVITY; PT REUSED VITAL SIGNS TO BE CHECKED. CHARGE NURSE INFORMED AND SHE CHECKED THE PT. AT THIS TIME PT IN BED .
[2017-11-19] MEDS: ENOXAPARIN SODIUM 40 MG/0.4 ML DISP.SYRIN SQ SCH (21:18)
[2017-11-19] MEDS: PRIMIDONE 50 MG TABLET PO SCH (21:22)
--- NOTE | 2017-11-19 21:40 | NUR ---
MS/CONCRETE CRUSHER LOADER OPERATOR; AT THIS TIME PT IN BED SLEEPING.SITTER PRESENT.
--- NOTE | 2017-11-19 22:30 | NUR ---
MS/QUYEN; PT IS UP AND WANDERING AROUND THE UNIT HALLWAY, VERY AGITATED, CHARGE AWARE THE PT'S CONDITION SHE CALLED FOR SECURITY AND SECURITIES IN .
[2017-11-19 22:40] VITALS: BP 109/60
--- NOTE | 2017-11-19 22:40 | NUR ---
MS/TICKET PULLER; PT ASSISTED WITH NURSING STAFFS AND WITH SECURITIES BACK TO BED. CHARGE NURSE CHECKED PT'S BP ON LA 109 /60 HR 71. UNABLE TO GIVE THE ATIVAN PO.
--- NOTE | 2017-11-19 22:40 | NUR ---
MS/ASSEMBLER DECK AND HULL; HALDOL 1 MG IM Q 4 HOURS PRN GIVEN ON PT'S RT DELTOID. THE STOCK OF THE HALDOL IM 5 MG / ML SO 0.2 ML = WAS GIVEN IM WITH CHARGE NURSE WITNESS.
--- NOTE | 2017-11-19 23:00 | NUR ---
MS/PREPLEATER; PT AT THIS TIME IN BED AWAKE AND CALM DOWN. CONTINUE TO MONITOR.
--- NOTE | 2017-11-20 | NUR ---
MS/SOLE RUFFER; PT IN BED SLEEPING. BREATHING NON LABORED. CONTINUE TO MONITOR. SITTER PRESENT AT THE BEDSIDE.
--- NOTE | 2017-11-20 01:00 | NUR ---
MS/DENTAL SALES REPRESENTATIVE; PT IN BED SLEEPING AT THIS TIME. BREATHING NON LABORED. SITTER PRESENT FOR SAFETY.
--- NOTE | 2017-11-20 01:45 | NUR ---
MS/COMMISSION AUDITOR; PT IN BED SLEEPING. BREATHING NON LABORED.
--- NOTE | 2017-11-20 03:00 | NUR ---
MS/ACCOUNTS RECEIVABLE COLLECTOR PT IN BED STILL SLEEPING . BREATHING NON LABORED AND EVEN. CONTINUE TO MONITOR.
--- NOTE | 2017-11-20 04:00 | NUR ---
MS/ASH PIT WORKER; PT IN BED STILL SLEEPING. BREATHING NON LABORED AND EVEN. CONTINUE TO MONITOR.
--- NOTE | 2017-11-20 04:30 | NUR ---
MS/FOOD BEVERAGE ATTENDANT; PT WOKE UP WENT TO THE BATHROOM VOIDED ONLY TO YELLOW URINE; NO BM. BACK TO BED .
--- NOTE | 2017-11-20 04:45 | NUR ---
MS/SCAFFOLD ERECTOR; PT IN BED SLEEPING. BREATHING NON LABORED AND EVEN. CONTINUE TO MONITOR.
--- NOTE | 2017-11-20 07:01 | NUR ---
MS/STRUCTURAL DESIGN ENGINEER; PT IN BED RESTING WITH EYES CLOSED. BREATHING NON LABORED. NO C/O ABDOMINAL PAIN NOR N/V. NO BM . SITTER PRESENT AT ALL TIMES. WILL CONTINUE TO MONITOR. REFUSED AM CARE. WILL ENDORSE TO THE DAY SHIFT NURSE FOR CONTINUITY OF CARE.
--- NOTE | 2017-11-20 07:20 | NUR ---
RN OPENING NOTES RECEIVED REPORT FROM PM NURSE.PATIENT IS ON BED.AWAKE.NON COOPERATIVE.SITTER AT BEDSIDE. PER PM NURSE REFUSED IV INSERTION.EXPLAINED ABOUT THE PLAN TODAY.NO RESPONSE.FOCUSING ATTENTION ON THE TV.ON RA.BED IS LOCKED AND IN LOW POSITION.SAFETY MAINTAINEDCALL LIGHT IN REACH.CONTINUE TO MONITOR.
[2017-11-20] MEDS: SERTRALINE HCL 50 MG TABLET PO SCH (08:17)
[2017-11-20] MEDS: THIAMINE HCL 100 MG TABLET PO SCH (08:39)
[2017-11-20] MEDS: DIVALPROEX SODIUM 125 MG CAP.SPRINK PO SCH ×3 (08:39→17:26)
[2017-11-20] MEDS: ASPIRIN 81 MG TAB.CHEW PO SCH (08:39)
--- NOTE | 2017-11-20 10:30 | NUR ---
RN NOTE RADIOLOGY HERE TO RETAIL LOSS PREVENTION INVESTIGATOR PATIENT FOR CT SCAN.REFUSED THE PROCEDURE.EXPLAINED THE RISK AND BENEFITS.STILL REFUSING.
--- NOTE | 2017-11-20 11:11 | NUR ---
SPOKE WITH PAVAN HAMMER. PATIENT STILL REFUSING CT HEAD.
--- NOTE | 2017-11-20 11:30 | NUR ---
RN NOTE SEEN BY MADE AWARE ABOUT PATIENT CONDITION AND REFUSING MEDS,V/S CHECK,CT SCAN,ALL CARE.ASKED TO WATCH TO MONITOR NOW.WILL FOLLOW UP.
--- NOTE | 2017-11-20 15:00 | NUR ---
RN NOTES MADE AWARE THAT PATIENT IS REFUSING ALL MEDICATION CARE AND VITAL SIGNS.EXPLAINED RISK AND BENEFITS.STILL REFUSING.ALSO NOTIFIED RADIOLOGY REQUEST TO D/C CT SCAN ORDER IF PATIENT KEEP ON REFUSING AND RE-ORDER WHEN EVER PATIENT IS READY .ITS OK TO D/C CT SCAN ORDER PER .OFFEDED MORE THAN 3 TIMES ALL THE CARE .STILL REFUSING .CONTINUE TO MONITOR.
--- NOTE | 2017-11-20 15:25 | NUR ---
ENGRAVER PANTOGRAPH NOTE PATIENT DISCHARGED TO [facility] WITH PARAMEDICS IN A GURNEY.AXOX1-2 WITH PERIODS OF CONFUSION.SPOKE TO ANGELICA BROWNE IN THE SNF ,REPORT GIVEN REGARDING THE PATIENT AND MADE AWARE THAT DISCONTINUED IV ANTIBIOTICS AND CONTINUING WITH PO ATBX5 DAYS OF TOTAL.LEFT FACILITY IN STABLE CONDITION.O2 2L VIA NASAL CANULA SATURATING 96%.NO SOB NO DISTRESS NOTED AT THIS TIME.IV REMOVED.MINIMAL BLEEDING NOTED.PRESSURE DRESSING APPLIED.NO BELONGINGS FROM ADMISSION. Addendum: 11/20/17 at 1619 by VIKAS BUTLER RN WRONG ENTRY
[2017-11-20] MEDS: QUETIAPINE FUMARATE 25 MG TABLET PO SCH (17:26)
[2017-11-20 17:34] VITALS: BP 92/58
--- NOTE | 2017-11-20 17:37 | NUR ---
RN NOTES FAMILY WAS AT BEDSIDE.EXPLAINED PATIENT CONDITION AND REFUSING ALL MEDS AND CARE.SON TALKED TO THE PATIENT .SHE TOOK MEDICATIONS ,AND ALLOWED TO CHECK VITAL SIGNS.REQUESTED IF FAMILY CAN COME AT THE TIME OF CT SCAN.SON SAID HE CAN COME AT ANY TIME AND TO RE-ORDER CT SCAN FOR TOMORROW.TO CALL HIM BEFORE PROCEDURE.
--- NOTE | 2017-11-20 19:06 | NUR ---
RN SHIFT END NOTES REPORT GIVEN TO PM NURSE.PATIENT IS ON BED.AXOX1 WITH PERIODS OF CONFUSION.NON COOPERATIVE.SITTER AT BEDSIDE. REFUSED IV INSERTION.ON RA.BRP.NEED TO COLLECT STOOL FOR TEST.BED IS LOCKED AND IN LOW POSITION.SAFETY MAINTAINED CALL LIGHT IN REACH.ENDORSED TO PM NURSE FOR TYRON.
[2017-11-20 20:00] VITALS: BP 105/59
--- NOTE | 2017-11-20 20:25 | NUR ---
RN OPENING NOTES RECEIVED REPORT FROM HARMAN BROWNE. PATIENT A/A/O X1, WITHDRAWN & NOT ANSWERING QUESTIONS. BREATHING EVEN & UNLABORED, TOLERATING ROOM AIR. SKIN WARM, DRY & INTACT W/ PULSES PRESENT. NO S/S OF ANY PAIN OR DISCOMFORT @ THIS TIME. SAFETY MEASURES MAINTAINED W/ SITTER @ BEDSIDE. REFUSED VS & IV INSERTION. PATIENT RESTING COMFORTABLY IN BED. WILL CONTINUE TO MONITOR.
[2017-11-20] MEDS: ENOXAPARIN SODIUM 40 MG/0.4 ML DISP.SYRIN SQ SCH (21:00)
[2017-11-20] MEDS: PRIMIDONE 50 MG TABLET PO SCH (21:42)
--- NOTE | 2017-11-21 07:30 | NUR ---
MS RN OPENING NOTES RECEIVED PATIENT IN STABLE CONDITION. IN NO APPARENT DISTRESS. BEDSIDE RAILS ARE UPX2. BED IS LOCKED AND LOWERED. CALL LIGHT IS WITHIN REACH. IV LINE IS INTACT AND PATENT. WILL CONTINUE TO MONITOR.
--- NOTE | 2017-11-21 08:00 | NUR ---
CALLED SON AND LEFT A VOICEMAIL TO COME TO ASSIST IN CONVINCING PATIENT TO HAVE CT OF THE HEAD WITHOUT CONTRAST. SON DID NOT ANSWER PHONE CALL. LEFT A VOICEMAIL.
[2017-11-21] MEDS: DIVALPROEX SODIUM 125 MG CAP.SPRINK PO SCH (08:24)
[2017-11-21] MEDS: THIAMINE HCL 100 MG TABLET PO SCH (08:25)
[2017-11-21] MEDS: ASPIRIN 81 MG TAB.CHEW PO SCH (08:25)
[2017-11-21] MEDS: SERTRALINE HCL 50 MG TABLET PO SCH (08:27)
--- NOTE | 2017-11-21 08:29 | NUR ---
PATIENT REFUSED MORNING MEDICATIONS.
[2017-11-21] MEDS ORDERED: DIVA125C2 PO (10:21)
--- NOTE | 2017-11-21 12:46 | NUR ---
PATIENT DISCHARGED IN STABLE CONDITION. EXITCARE PROVIDED TO THE PATIENT AND PARAMEDICS TEAM. IV LINE WAS DISCONTINUED. PATIENT REFUSED TO HAVE ID BAND REMOVED. CISCO CERTIFIED INTERNETWORK EXPERT BROUGHT IN TO EXPLAIN TO PATIENT THAT WE NEED TO REMOVE ID BAND, PATIENT CONTINUED TO REFUSE AND COMBATIVE. ATTEMPTED TO CALL SON VIA CELL PHONE TO INFORM THAT PATIENT IS DISCHARGED TO [facility]. THERE WAS NO ANSWER. CALLED CASE MANAGEMENT TO FOLLOW UP IN REGARDS TO CALLING THE SON TO INFORM HIM OF PATIENTS DISCHARGE. CASE MANAGEMENT WILL FOLLOW UP. [facility]. VITAL SIGNS WNL. PATIENTS BELONGINGS CHECKED AND WITH PATIENT.
== END 2017-11-21 12:55 | DRG 640 ==
LOC: ER 14:38 → MEDSG1 18:18
PROVIDERS: ADMIT Internal Medicine; ATTEND Internal Medicine
DX: E86.0 Dehydration (principal); G92 Toxic encephalopathy; E87.1 Hypo-osmolality and hyponatremia; F41.9 Anxiety disorder, unspecified; I10 Essential (primary) hypertension; F17.210 Nicotine dependence, cigarettes, uncomplicated; E86.1 Hypovolemia; R19.7 Diarrhea, unspecified; F29 Unspecified psychosis not due to a substance or known physiological condition; F32.9 Major depressive disorder, single episode, unspecified; F10.10 Alcohol abuse, uncomplicated; F39 Unspecified mood [affective] disorder
CPT/HCPCS: 36415; 80048-TC; 80076-TC; 81000-TC; 83690-TC; 85025-TC; 85730-TC; 87081-TC; A4606; J1630; J1650; J7030; Z7610

== ENCOUNTER 2018-10-05 13:42 | Inpatient (IN) | payer MEDICARE, OTHER ==
[~2018-10-05] VITALS: Ht 162.6 cm; Wt 83.5 kg
[~2018-10-05 13:42] MED LIST changes: -ARIP5TAB20 PO; -DIVA-78 PO; +DIVA125C2 PO; -LEVO500T90 PO; +LORA-259 PO; -MYRBETRIQ PO; +OMEG1CAP55 PO; +QUET25TA PO; -TEMA30CA PO; +THIA100T74 PO
--- NOTE | 2018-10-05 14:02 | NUR ---
PT BIBFAMILY FROM HOME FOR REFUSING MEDS; PT AAOX2-3, PT ON MONITOR, VSS, NAD NOTED, PENDING MD SCOTT
[2018-10-05 14:22] LABS: BASOPHILS # (AUTO) 0.1 /CMM (0.0-0.2); BASOPHILS % (AUTO) 1.2 % (0.0-2.0); EOSINOPHILS % (AUTO) 2.9 % (0.0-6.0); HEMATOCRIT 42 % (33-45); HEMOGLOBIN 14.1 g/dL (11.5-14.8); LYMPHOCYTES # (AUTO) 1.4 /CMM (0.8-4.8); LYMPHOCYTES % (AUTO) 27.2 % (20.0-44.0); MEAN CORPUSCULAR HGB CONC 34 g/dl (31.0-36.0); MEAN CORPUSCULAR VOLUME 98 fL (82-100); MONOCYTES # (AUTO) 0.7 /CMM (0.1-1.30); MONOCYTES % (AUTO) 14.3 % (2.0-12.0); NEUTROPHILS # (AUTO) 2.8 /CMM (1.8-8.9); NEUTROPHILS % (AUTO) 54.4 % (43.0-81.0); PLATELET COUNT (AUTO) 168 /CMM (150-450); RED BLOOD CELL COUNT(AUTO) 4.24 MIL/uL (4.0-5.2); WHITE BLOOD COUNT (AUTO) 5.1 K/uL (4.3-11.0)
[2018-10-05] MEDS ORDERED: DIVA-76 PO (14:27)
[2018-10-05] MEDS ORDERED: IV NS 0.9% 1,000 ML BAG IV ONE (14:30)
[2018-10-05 14:31] LABS: CALCIUM, SERUM 8.9 mg/dL (8.5-10.1); CARBON DIOXIDE 31 mmol/L (21-32); CHLORIDE 101 mmol/L (98-107); CREATININE 0.7 mg/dL (0.6-1.3); GLUCOSE 90 mg/dL (74-106); POTASSIUM 4.2 mmol/L (3.5-5.1); SODIUM SERUM 135 mmol/L (136-145); UREA NITROGEN, BLOOD 12 mg/dL (7-18)
[2018-10-05 14:36] LABS: ALANINE AMINOTRANSFERASE 19 U/L (12-78); ALBUMIN 3.3 g/dL (3.4-5.0); ALCOHOL, BLOOD < 3 mg/dL (0-0); ALKALINE PHOSPHATASE 44 U/L (46-116); ASPARTATE AMINOTRANSFERASE 18 U/L (15-37); BILIRUBIN,DIRECT 0.1 mg/dL (0.0-0.2); BILIRUBIN,TOTAL 0.2 mg/dL (0.2-1.0); TOTAL PROTEIN, SERUM 6.5 g/dL (6.4-8.2)
[2018-10-05 14:37] LABS: SALICYLATE 2.4 mg/dL (2.8-20.0)
[2018-10-05 14:38] LABS: ACETAMINOPHEN 0 ug/ml (10-30)
[2018-10-05 15:13] LABS: APPEARANCE,URINE Clear (CLEAR); BILIRUBIN,URINE MODERATE (NEGATIVE); BLOOD, URINE Negative Ery/uL (NEGATIVE); COLOR,URINE Yellow (YELLOW); KETONES,URINE 15 (NEGATIVE); LEUKOCYTE ESTERASE ,URINE Negative (NEGATIVE); NITRITE, URINE Negative (NEGATIVE); PROTEIN,URINE 30 mg/dl (NEGATIVE); UGLUCOSE Negative (NEGATIVE)
--- NOTE | 2018-10-05 15:33 | NUR ---
CALLED DR SCHOFIELD'S OFFICE FOR A TO DR ACUÑA.
[2018-10-05 15:34] LABS: BACTERIA,URINE Moderate /HPF (None Seen); RBC,URINE 0-2 /HPF (0-2); WBC,URINE 0-2 /HPF (0-3)
[2018-10-05 15:35] LABS: SQUAMOUS EPITHELIAL CELL,UR Many /HPF (None Seen)
--- NOTE | 2018-10-05 15:52 | NUR ---
CALLED DIRECTOR OF RESIDENTIAL SERVICES CRISIS CLINICAN. ETA 60 MIN
--- NOTE | 2018-10-05 17:02 | NUR ---
[facility]B [facility] BED GIVEN
--- NOTE | 2018-10-05 17:50 | NUR ---
REPORT GIVEN TO SHAMEKA FOR TYRON; PT WILL BE TRANSPORTED TO [facility]
[2018-10-05] MEDS ORDERED: MAGNESIUM HYDROXIDE 30 ML UDC PO PRN (19:00)
[2018-10-05] MEDS ORDERED: MAG HYDROX/AL HYDROX/SIMETH 30 ML UDC PO PRN (19:00)
[2018-10-05] MEDS ORDERED: ACETAMINOPHEN 325 MG TABLET PO PRN (19:00)
--- NOTE | 2018-10-05 19:03 | NUR ---
GPS-ADMISSION NOTES: ADMITTED A 72 YR-OLD, FEMALE, FROM ER INITIALLY PT. CAME FROM HOME. ADMITTED ON 5150 FOR GD. PER HOLD, PATIENT VERY DEPRESSED, WITHDRAWN. PATIENT DOES NOT KNOW WHY SHE IS NOT EATING OR TAKING HER MEDICATIONS. PATIENT IS NOT SLEEPING. PATIENT IS UNABLE TO MANAGE HER FOOD, FDC OR CLOTHING DUE TO MENTAL ILLNESS. UPON FACE TO FACE ASSESSMENT, PATIENT IS ALERT, ORIENTED X2, DEPRESSED MOOD, ANXIOUS, WITH EPISODES OF CRYING. IN NO APPARENT DISTRESS NOTED. AMBULATES INDEPENDENTLY. NO S/SX OF PAIN OR DISCOMFORT NOTED. BELONGINGS WERE INVENTORIED AND CHECKED FOR CONTRABAND. DR. GLEASON NOTIFIED OF ADMISSION WITH STANDING ORDERS AND UNDER THE MEDICAL CARE OF HERLINDA LOVELACE, SEEN AND EXAMINED PATIENT AT BEDSIDE. MED RECON DONE. SKIN ASSESSMENT DONE. BED LOCKED AND PLACED ON LOWEST POSITION TO MAINTAIN SAFETY. FALL PRECAUTIONS IMPLEMENTED. WILL CONTINUE TO MONITOR Q15 MINS. FOR SAFETY AND BEHAVIOR.
[2018-10-05 19:55] VITALS: BP 126/67
[2018-10-05 20:07] VITALS: BP 126/67
[2018-10-05] MEDS ORDERED: PROPRANOLOL HCL 10 MG TABLET PO PRN (21:00)
[2018-10-05] MEDS: PRIMIDONE 50 MG TABLET PO SCH (21:27)
[2018-10-05 22:18] VITALS: BP 135/65
[2018-10-05] MEDS: LORAZEPAM 0.5 MG TABLET PO PRN (23:17)
[2018-10-06 07:17] LABS: BILIRUBIN,TOTAL 0.2 mg/dL (0.2-1.0); CALCIUM, SERUM 8.5 mg/dL (8.5-10.1); CREATININE 0.6 mg/dL (0.6-1.3); TOTAL PROTEIN, SERUM 6.2 g/dL (6.4-8.2)
[2018-10-06] MEDS: ASPIRIN 81 MG TAB.CHEW PO SCH (08:31)
[2018-10-06] MEDS: THIAMINE HCL 100 MG TABLET PO SCH (08:31)
--- NOTE | 2018-10-06 11:19 | NUR ---
SW attempted to contact pts Son Serafin [phone] for collateral information and discharge planning and left a voicemail for callback.
[2018-10-06] MEDS: DIVALPROEX SODIUM 250 MG TABLET.DR PO SCH ×2 (12:09→16:36)
--- NOTE | 2018-10-06 13:26 | NUR ---
GROUP NOTE: Pt sat in group but did not participate pt is guarded, confused, disorganized, disoriented and unable to engage in conversation. Pt sat quietly for 10 minutes, SW attempted to engage pt and pt did not answer questions. After 10 minutes pt left group and was observed pacing the hallway.
[2018-10-06 16:00] VITALS: BP 113/58
--- NOTE | 2018-10-06 17:37 | NUR ---
GPS/RN-NOTES [employer]INE[employer] MADE AWARE OF PATIENT LAB RESULTS TODAY. WILL ENCOURAGE PATIENT TO INCREASED FLUID INTAKE.NOTED.
[2018-10-06 20:08] VITALS: BP 105/55
[2018-10-06] MEDS: PRIMIDONE 50 MG TABLET PO SCH (21:02)
[2018-10-06] MEDS: QUETIAPINE FUMARATE 100 MG TABLET PO SCH (21:28)
[2018-10-06] MEDS: ZOLPIDEM TARTRATE 5 MG TABLET PO PRN (22:06)
[2018-10-07] MEDS ORDERED: VITAMINS A AND D 56.7 GM TUBE TP PRN (05:30)
[2018-10-07 08:00] VITALS: BP 113/67
[2018-10-07] MEDS: THIAMINE HCL 100 MG TABLET PO SCH (08:18)
[2018-10-07] MEDS: DIVALPROEX SODIUM 250 MG TABLET.DR PO SCH ×3 (08:18→16:10)
[2018-10-07] MEDS: ASPIRIN 81 MG TAB.CHEW PO SCH (08:18)
--- NOTE | 2018-10-07 08:50 | NUR ---
SW attempted to contact pts Son Serafin [phone] for collateral information and discharge planning and left a voicemail for callback.
--- NOTE | 2018-10-07 09:07 | NUR ---
INITIAL DISCHARGE PLAN: Patient came from home [id number] [facility] [address] [place] [address] and may need SNF placement. CARL has attempted to contact Jose Alfredo Betancourt [phone] to discuss discharge plan but has been unable to reach him. CARL will help form a safe and proper discharge in collaboration with .
[2018-10-07] MEDS: LORAZEPAM 0.5 MG TABLET PO PRN (12:06)
--- NOTE | 2018-10-07 14:26 | NUR ---
Group Note: SW prompted the pt to attend group therapy and the pt stated that she did not want to participate. Pt has been observed to be isolating. Pt is confused and disorganized.
[2018-10-07 16:00] VITALS: BP 100/65
[2018-10-07 20:37] VITALS: BP 105/59
[2018-10-07] MEDS: PRIMIDONE 50 MG TABLET PO SCH (21:09)
[2018-10-07] MEDS: QUETIAPINE FUMARATE 100 MG TABLET PO SCH (21:09)
[2018-10-07] MEDS: ZOLPIDEM TARTRATE 5 MG TABLET PO PRN (21:59)
[2018-10-08 08:00] VITALS: BP 127/67
[2018-10-08] MEDS: DIVALPROEX SODIUM 250 MG TABLET.DR PO SCH ×3 (08:08→16:17)
[2018-10-08] MEDS: THIAMINE HCL 100 MG TABLET PO SCH (08:08)
[2018-10-08] MEDS: ASPIRIN 81 MG TAB.CHEW PO SCH (08:08)
[2018-10-08 16:00] VITALS: BP 100/56
[2018-10-08] MEDS: LORAZEPAM 0.5 MG TABLET PO PRN (19:59)
[2018-10-08 20:00] VITALS: BP 116/69
[2018-10-08] MEDS: PRIMIDONE 50 MG TABLET PO SCH (21:06)
[2018-10-08] MEDS: QUETIAPINE FUMARATE 100 MG TABLET PO SCH (21:06)
[2018-10-09] MEDS: ZOLPIDEM TARTRATE 5 MG TABLET PO PRN ×2 (00:25→23:08)
[2018-10-09 08:00] VITALS: BP 115/59
--- NOTE | 2018-10-09 08:25 | NUR ---
SW attempted to contact pts Son Serafin [phone] for collateral information and discharge planning and left a voicemail for callback.
[2018-10-09] MEDS: DIVALPROEX SODIUM 250 MG TABLET.DR PO SCH ×3 (08:43→16:29)
[2018-10-09] MEDS: ASPIRIN 81 MG TAB.CHEW PO SCH (08:43)
[2018-10-09] MEDS: THIAMINE HCL 100 MG TABLET PO SCH (08:43)
--- NOTE | 2018-10-09 10:19 | NUR ---
CARL received a phone call from pts daughter in law Serenity [phone] who informed CARL that pt has a caregiver at home who provides care for her everyday for 5/6 hours a day. Serenity also stated that she is interested in pt going to a SNF but not a locked unit, she mentioned pt has been at [facility] in the past. Serenity also mentioned that she would like pt discharged this weekend if possible. CARL will help form a safe discharge plan in collaboration with daughter in law and psychiatrist. CARL will discuss discharge plan with .
--- NOTE | 2018-10-09 12:08 | NUR ---
CARL attempted to contact pts daughter in law Serenity [phone] to inform her SW had spoken with psychiatrist Dr. Juares regarding her wishes to discharge pt this weekend. CARL informed her via voicemail that psychiatrist stated that pt is able to return home on Friday or Friday or if she wishes for pt to be discharged to a SNF she would discharge next week. CARL requested a callback to discuss pts discharge plan.
--- NOTE | 2018-10-09 15:07 | NUR ---
Group note: Pt is unable to participant in group therapy as pt is confused, disoriented, and disorganized. Pt is only alert and oriented to self pt is unable to follow instructions or sit in a group setting.
--- NOTE | 2018-10-09 15:31 | NUR ---
DISCHARGE NOTE: Pt will be discharged on Friday10/10/18 after 3:00pm home [address] [facility] [address] [place] [address]. Pts daughter in law Serenity [phone] will be picking pt up and transporting home. Pts mood is euthymic with congruent affect. Pt denied visual/auditory hallucinations and denied suicidal/homicidal ideation. Pt was given a referral to [facility] Address: [address] [facility] [address], [place] [address] and daughter in law will schedule a follow up appointment with Cloth Finishing Range Tender: Dr. Antoinette Carpenter Address: [address] [place] [address] . Pt is cognitively impaired and unable to participate in substance abuse intervention. However, SW provided pt with a referral to [address] [address] / and was encouraged to present at 9am on Friday, October 12, 2018. Additional resources included [facility] [address] [place] [address] and [facility] [address] [place] [address] .The multidisciplinary exitcare form was done, printed, signed, and given to the patient. Addendum: 10/09/18 at 1537 by LILA HENRY Pt has a caregiver that provides care for her everyday for 5/6/day.
[2018-10-09 16:00] VITALS: BP 109/59
[2018-10-09] MEDS: LORAZEPAM 0.5 MG TABLET PO PRN (19:48)
[2018-10-09 20:00] VITALS: BP 108/57
[2018-10-09] MEDS: PRIMIDONE 50 MG TABLET PO SCH (21:17)
[2018-10-09] MEDS: QUETIAPINE FUMARATE 100 MG TABLET PO SCH (21:18)
[2018-10-10 08:00] VITALS: BP 97/55
[2018-10-10] MEDS: DIVALPROEX SODIUM 250 MG TABLET.DR PO SCH ×2 (08:27→12:07)
[2018-10-10] MEDS: THIAMINE HCL 100 MG TABLET PO SCH (08:27)
[2018-10-10] MEDS: ASPIRIN 81 MG TAB.CHEW PO SCH (08:27)
--- NOTE | 2018-10-10 09:06 | NUR ---
DR. GLEASON GAVE AN ORDER TO D/C HOLD AND D/C HOME AND TO FOLLOW UP WITH PSYCH AND MEDICAL DOCTORS.
--- NOTE | 2018-10-10 15:58 | NUR ---
GPS DISCHARGE NOTE: PT DISCHARGE HOME [address] [place] [address], PICKED UP BY HER SON AND DAUGHTER IN LAW ELÍAS.PT IN STABLE CONDITION NO S/S DISTRESS NOTED, VSS, PT DENIES SI/HI NO C/O PAIN OR DISCOMFORT. EXIT CARE DONE, PRINTED, SIGN AND GIVEN TO PT. PRESCRIPTIONS EXPLAIN GIVEN TO PT. SKIN INTACT.ALL BELONGINGS AND VALUABLES RETURNED TO PT.
== END 2018-10-10 16:00 | disposition home or self-care (01) | DRG 885 ==
LOC: ER 13:48 → GPS 17:38
PROVIDERS: ADMIT Psychiatry & Neurology Psychiatry; ATTEND Nurse Practitioner Acute Care
DX: F29 Unspecified psychosis not due to a substance or known physiological condition (principal); G93.40 Encephalopathy, unspecified; I10 Essential (primary) hypertension; E66.9 Obesity, unspecified; F10.20 Alcohol dependence, uncomplicated; F32.9 Major depressive disorder, single episode, unspecified; G30.9 Alzheimer's disease, unspecified; F02.80 Dementia in other diseases classified elsewhere, unspecified severity, without behavioral disturbance, psychotic disturbance, mood disturbance, and anxiety; Z91.14 Patient's other noncompliance with medication regimen; Z68.31 Body mass index [BMI] 31.0-31.9, adult
CPT/HCPCS: 36415; 71045-TC; 80048-TC; 80053-TC; 80061-TC; 80076-TC; 80164-TC; 80305; 81000-TC; 84484-TC; 85025-TC; 87081-TC; 87086-TC; G0480; J7030

== ENCOUNTER 2018-12-17 12:31 | Inpatient (IN) | payer MEDICARE, OTHER ==
[~2018-12-17] VITALS: Ht 172.7 cm; Wt 64.0 kg
[~2018-12-17 12:31] MED LIST changes: -DIVA125C2 PO; -LORA-259 PO; -OMEG1CAP55 PO; -QUET25TA PO; -SERT50TA PO
--- NOTE | 2018-12-17 12:36 | NUR ---
PT RACHID FOR DEPRESSION, FAILURE TO THRIVE; PT AAOX4, -SOB, NAD NOTED, VSS ,PENDING MD SCOTT
[2018-12-17] MEDS ORDERED: IV NS 0.9% 1,000 ML BAG IV ONE (13:00)
[2018-12-17 13:07] LABS: BASOPHILS # (AUTO) 0.1 /CMM (0.0-0.2); BASOPHILS % (AUTO) 1.2 % (0.0-2.0); EOSINOPHILS % (AUTO) 0.7 % (0.0-6.0); HEMATOCRIT 47 % (33-45); HEMOGLOBIN 15.4 g/dL (11.5-14.8); LYMPHOCYTES # (AUTO) 1.2 /CMM (0.8-4.8); LYMPHOCYTES % (AUTO) 20.8 % (20.0-44.0); MEAN CORPUSCULAR HGB CONC 33 g/dl (31.0-36.0); MEAN CORPUSCULAR VOLUME 99 fL (82-100); MONOCYTES # (AUTO) 0.6 /CMM (0.1-1.30); MONOCYTES % (AUTO) 10.5 % (2.0-12.0); NEUTROPHILS # (AUTO) 3.7 /CMM (1.8-8.9); NEUTROPHILS % (AUTO) 66.8 % (43.0-81.0); PLATELET COUNT (AUTO) 139 /CMM (150-450); RED BLOOD CELL COUNT(AUTO) 4.74 MIL/uL (4.0-5.2); WHITE BLOOD COUNT (AUTO) 5.6 K/uL (4.3-11.0)
[2018-12-17 13:18] LABS: CALCIUM, SERUM 9.1 mg/dL (8.5-10.1); CARBON DIOXIDE 19 mmol/L (21-32); CHLORIDE 97 mmol/L (98-107); CREATININE 1.1 mg/dL (0.6-1.3); GLUCOSE 93 mg/dL (74-106); POTASSIUM 4.2 mmol/L (3.5-5.1); SODIUM SERUM 133 mmol/L (136-145); UREA NITROGEN, BLOOD 18 mg/dL (7-18)
[2018-12-17 13:25] LABS: ALANINE AMINOTRANSFERASE 20 U/L (12-78); ALBUMIN 3.7 g/dL (3.4-5.0); ALKALINE PHOSPHATASE 48 U/L (46-116); ASPARTATE AMINOTRANSFERASE 24 U/L (15-37); BILIRUBIN,DIRECT 0.1 mg/dL (0.0-0.2); BILIRUBIN,TOTAL 0.8 mg/dL (0.2-1.0)
[2018-12-17 13:31] LABS: APPEARANCE,URINE Cloudy (CLEAR); BILIRUBIN,URINE LARGE (NEGATIVE); BLOOD, URINE Moderate Ery/uL (NEGATIVE); COLOR,URINE Yellow (YELLOW); KETONES,URINE 80 (NEGATIVE); LEUKOCYTE ESTERASE ,URINE Negative (NEGATIVE); NITRITE, URINE Negative (NEGATIVE); PH,URINE 5.5 (5.0-8.0); PROTEIN,URINE 100 mg/dl (NEGATIVE); UGLUCOSE Negative (NEGATIVE)
--- NOTE | 2018-12-17 13:32 | NUR ---
CALLED [employer] GLASS BLOCK INSTALLER WAS PAGED.
[2018-12-17] MEDS ORDERED: DIVA250T4 PO (13:43)
[2018-12-17] MEDS ORDERED: QUET25TA PO (13:43)
[2018-12-17] MEDS ORDERED: MULT-24 PO (13:43)
[2018-12-17] MEDS ORDERED: OMEG1CAP PO (13:43)
[2018-12-17 13:55] LABS: BACTERIA,URINE Few /HPF (None Seen); HYALINE CASTS, URINE 0-2 /LPF (None Seen); SQUAMOUS EPITHELIAL CELL,UR Moderate /HPF (None Seen)
--- NOTE | 2018-12-17 13:58 | NUR ---
REPORT GIVEN TO ISHAAN RN FOR TYRON; PT WILL BE TRANSPORTED TO [facility]
[2018-12-17 14:30] VITALS: BP 103/65
--- NOTE | 2018-12-17 14:30 | NUR ---
MS/RN NOTE THE PATIENT IS RECEIVED ON A W/CHAIR. ASSISTED TO BED. PATIENT ABLE TO AMBULATE WITH STAND BY. IN ROOM AIR AND DENIES SOB. RESPIRATION REGULAR AND UNLABORED. DENIES PAIN. RIGHT HAND G 20 PATENT AND SALINE LOCKED. ROOM/UNIT ORIENTATION GIVEN AND THE PATIENT VERBALIZED UNDERSTANDING. BED LOW AND LOCKED. SIDE RAILS UP X3. CALL LIGHT WITHIN REACH. BED ALARM ON. WILL CONTINUE TO MONITOR.
[2018-12-17] MEDS ORDERED: ACETAMINOPHEN 325 MG TABLET PO PRN (17:00)
[2018-12-17] MEDS ORDERED: ONDANSETRON HCL/PF 4 MG/2 ML VIAL IVP PRN (17:00)
[2018-12-17] MEDS ORDERED: IV D5/0.45 NACL 1,000 ML IV PRN (17:00)
[2018-12-17] MEDS ORDERED: MAGNESIUM HYDROXIDE 30 ML UDC PO PRN (17:00)
[2018-12-17] MEDS ORDERED: Z GUARD REMEDY 2 OZ OINT TP PRN (17:00)
[2018-12-17] MEDS ORDERED: MAG HYDROX/AL HYDROX/SIMETH 30 ML UDC PO PRN (17:00)
--- NOTE | 2018-12-17 18:24 | NUR ---
MS/RN NOTE THE PATIENT ALERT AND ORIENTED X3. IN ROOM AIR AND SATURATION IS AT 98%. DENIES SOB. RESPIRATION REGULAR AND UNLABORED. DENIES PAIN. LFA G 22 AND RFA G 22 PATENT AND SALINE LOCKED. BED LOW AND LOCKED. SIDE RAILS UP X3. CALL LIGHT WITHIN REACH. WILL ENDORSE TO PAINTING CONTRACTOR. Addendum: 12/17/18 at 1826 by PRESTON VELÁSQUEZ RN MS/RN NOTE WRONG PATIENT NOTE
--- NOTE | 2018-12-17 19:08 | NUR ---
MS/RN NOTE THE PATIENT ALERT AND ORIENTED X3. IN ROOM AND SATURATION IS AT 98%. DENIES SOB. RESPIRATION REGULAR AND UNLABORED. DENIES PAIN. THE PATIENT IN NO APPARENT DISTRESS. RIGHT WRIST G 24 PATENT AND D5 1/2 NS INFUSING AT 75ML/HR AND NO S/S INFILTRATION NOTED. BED LOW AND LOCKED. SIDE RAILS UP X2. CALL LIGHT WITHIN REACH. WILL ENDORSE TO BINMAN.
--- NOTE | 2018-12-17 19:20 | NUR ---
MS/RN NOTES RECEIVED PT. SITING UP IN BED. PT. IS AWAKE, ALERT AND ORIENTED X2. BREATHING EVEN AND UNLABORED ON ROOM AIR. NO SOB, RESPIRATORY DISTRESS OR COMPLAINTS OF PAIN NOTED AT THIS TIME. PT. WITH RIGHT WRIST 24 GAUGE PERIPHERAL IV PRESENT, PATENT AND INTACT ADMINISTERING TO PT. D5 1/2 NS @ 75 ML/HR. BED LOCKED AND IN LOWEST POSITION, SIDE RAILS UP X2, BED ALARM ON, CALL LIGHT WITHIN REACH, WILL CONTINUE TO MONITOR.
[2018-12-17 20:12] VITALS: BP 127/44
--- NOTE | 2018-12-17 20:58 | NUR ---
MS/RN NOTES CALLED AND NOTIFIED THE [facility] RELIABILITY ENGINEER DR. GARCIAS THAT PT. HAS CRITICAL LAB RESULT: LACTIC ACID 2.9, PT. INITIAL LACTIC ACID WAS 2.2. PT. RECEIVED 1 LITER OF NS IN THE ER. PT. WAS RECEIVING IV D5 1/2 NS @75ML/HR HOWEVER PT. PULLED OUT HER IV ACCESS AND IS REFUSING INSERTION OF NEW IV ACCESS. PER DR. GARCIAS OK FOR NO IV ACCESS. NO NEW ORDERS. WILL CONTINUE TO MONITOR.
--- NOTE | 2018-12-18 07:00 | NUR ---
MS/RN NOTES PT. IS SITING UP IN BED. PT. IS AWAKE, ALERT AND ORIENTED X2. BREATHING EVEN AND UNLABORED ON ROOM AIR. NO SOB, RESPIRATORY DISTRESS OR COMPLAINTS OF PAIN NOTED AT THIS TIME. PT. REMAINS WITH NO IV ACCESS, MD AWARE. PT. CONTINUES TO REFUSE TO INSERT NEW IV ACCESS. ALL PT. NEEDS MET. BED LOCKED AND IN LOWEST POSITION, SIDE RAILS UP X2, BED ALARM ON, CALL LIGHT WITHIN REACH, WILL ENDORSE TO DAYSHIFT NURSE FOR CONTINUITY OF CARE.
--- NOTE | 2018-12-18 07:37 | NUR ---
RN OPENING NOTES PT AWAKE AND RESTING IN BED. PRIMARILY IRISH SPEAKER. NO COMPLAINTS OF PAIN, SOB OR DISTRESS AT THIS TIME. PATIENT REFUSING IV ACCESS AT THIS TIME. SAFETY PRECAUTIONS IN PLACE, BED IN LOWEST LOCKED POSITION, X2 SIDE RAILS UP AND CALL LIGHT WITHIN REACH. WILL CONTINUE TO MONITOR.
[2018-12-18 08:00] VITALS: BP 113/69
--- NOTE | 2018-12-18 12:07 | NUR ---
RN NOTES PT CONTINUES TO REFUSE LAB DRAWS.
--- NOTE | 2018-12-18 14:57 | NUR ---
RN NOTES PT REFUSED LAB DRAW X3 TIMES. AWARE.
--- NOTE | 2018-12-18 14:59 | NUR ---
RN NOTES PT MEDICALLY CLEARED. WILL ADMIT TO GPS UNIT. PT WILL TRANSFER TO ROOM 219.
[2018-12-18 16:00] VITALS: BP 102/56
--- NOTE | 2018-12-18 17:20 | NUR ---
LEASING REPRESENTATIVE NOTES PER DR ACEVEDO PATIENT MEDICALLY CLEARED. OKAY TO TRANSFER TO GPS. ALL DISCHARGE PAPERWORK COMPLETED. PATIENT UNABLE TO SIGN. ALL BELONGINGS TRANSFERRED WITH PATIENT. REPORT GIVEN TO PAVAN RUBI. PT AMBULATED TO GPS UNIT, ACCOMPANIED BY RN AND SALES CENTER ASSOCIATE.
[2018-12-18] MEDS ORDERED: MAGN400O6 PO (17:50)
[2018-12-18] MEDS ORDERED: MAG30ORA PO (17:50)
[2018-12-18] MEDS ORDERED: ALLA266C2 TP (17:50)
[2018-12-18] MEDS ORDERED: ONDA4TAB11 PO (17:50)
[2018-12-18] MEDS ORDERED: ACET-868 PO (17:50)
== END 2018-12-18 17:20 | DRG 641 ==
LOC: ER 12:40 → MEDSG2 14:03
PROVIDERS: ADMIT Internal Medicine; ATTEND Psychiatry & Neurology Psychiatry
DX: R62.7 Adult failure to thrive (principal); G93.40 Encephalopathy, unspecified; E87.1 Hypo-osmolality and hyponatremia; I10 Essential (primary) hypertension; F32.9 Major depressive disorder, single episode, unspecified; Z79.82 Long term (current) use of aspirin; G30.9 Alzheimer's disease, unspecified; F02.80 Dementia in other diseases classified elsewhere, unspecified severity, without behavioral disturbance, psychotic disturbance, mood disturbance, and anxiety; F29 Unspecified psychosis not due to a substance or known physiological condition; F10.20 Alcohol dependence, uncomplicated; Y90.9 Presence of alcohol in blood, level not specified
CPT/HCPCS: 36415; 71045-TC; 80048-TC; 80076-TC; 81000-TC; 83605-TC; 84484-TC; 85025-TC; 85730-TC; 87040-TC; 87081-TC; 87086-TC; G0378; J3490

== ENCOUNTER 2018-12-18 15:02 | Inpatient (IN) | payer MEDICARE, OTHER ==
[~2018-12-18] VITALS: Ht 162.6 cm; Wt 72.6 kg
[~2018-12-18 15:02] MED LIST changes: +DIVA250T4 PO; +MULT-24 PO; +OMEG1CAP PO; +QUET25TA PO
[2018-12-18 17:37] VITALS: BP 134/91
[2018-12-18] MEDS ORDERED: ONDA4TAB11 PO (17:50)
[2018-12-18] MEDS ORDERED: MAGN400O6 PO (17:50)
[2018-12-18] MEDS ORDERED: ALLA266C2 TP (17:50)
[2018-12-18] MEDS ORDERED: MAG30ORA PO (17:50)
[2018-12-18] MEDS ORDERED: ACET-868 PO (17:50)
[2018-12-18] MEDS ORDERED: MAG HYDROX/AL HYDROX/SIMETH 30 ML UDC PO PRN ×2 (18:00→20:00)
[2018-12-18] MEDS ORDERED: ZOLPIDEM TARTRATE 5 MG TABLET PO PRN (18:00)
[2018-12-18] MEDS ORDERED: ACETAMINOPHEN 325 MG TABLET PO PRN ×2 (18:00→20:00)
[2018-12-18] MEDS ORDERED: LORAZEPAM 0.5 MG TABLET PO PRN (18:00)
[2018-12-18] MEDS ORDERED: MAGNESIUM HYDROXIDE 30 ML UDC PO PRN ×2 (18:00→20:00)
--- NOTE | 2018-12-18 18:02 | NUR ---
GPS ADMITTING NOTE: PT ADMITTED FROM MEDICAL UNIT FOR FAILURE TO THRIVE. PLACED ON 5150 FOR GD PER HOLD PT POOR HISTORIAN, PT KEEPS ENTERING OTHER PATIENTS ROOMS, NOT EASILY REDIRECTED,AGITATED, JUDGMENT IS IMPAIRED, POOR INSIGHT AND IMPULSE CONTROL. PT NOT ABLE TO PROVIDE FOR HER FOOD MCFP OR CLOTHING DUE TO MENTAL STATE. UPON FACE TO FACE ASSESSMENT PT A/O X2 AMBULATORY STEADY GAIT, EASILY AGITATED, ANXIOUS.DR GLEASON NOTIFIED WITH STANDING ORDERS,BELONGING LIST DONE. WILL INDORSE TO INCOMING SHIFT RN FOR CONTINUATION OF CARE.
[2018-12-18] MEDS ORDERED: ONDANSETRON 4 MG TAB.RAPDIS PO PRN (20:00)
[2018-12-18 20:07] VITALS: BP 100/64
--- NOTE | 2018-12-18 20:10 | NUR ---
PT REFUSED SKIN ASSESSMENT AND MRSA SWAB TO BE TAKEN WILL ENDORSE TO NEXT SHIFT NURSE FOR CONTINUITY OF CARE.
[2018-12-18] MEDS ORDERED: PROPRANOLOL HCL 10 MG TABLET PO PRN (20:30)
[2018-12-19 08:00] VITALS: BP 115/75
[2018-12-19] MEDS ORDERED: Medication Not On Formulary EA (Omega-3 Fatty Acids/Fish Oil (Fish Oil 1,000 Mg Capsule) PO SCH (09:00)
[2018-12-19] MEDS: MULTIVITAMINS,THERAGRAN 1 UDTAB TABLET PO SCH (10:04)
[2018-12-19] MEDS: THIAMINE HCL 100 MG TABLET PO SCH (10:04)
[2018-12-19] MEDS: ASPIRIN 81 MG TAB.CHEW PO SCH (10:04)
[2018-12-19] MEDS: Z GUARD REMEDY 2 OZ OINT TP SCH ×2 (10:05→17:58)
--- NOTE | 2018-12-19 15:00 | NUR ---
DR. GLEASON AND RADHA FIRST AID NURSE AWARE PT. REFUSING LABS,MEDS.NEW ORDERS GIVEN.
[2018-12-19 16:00] VITALS: BP 102/53
[2018-12-19] MEDS: DIVALPROEX SODIUM 250 MG TABLET.DR PO SCH (17:57)
--- NOTE | 2018-12-19 18:16 | NUR ---
PT. AGAIN REFUSING LABS,DID TAKE NEW DEPAKOTE MED.WILL ENDORSE INFO TO RE.PAVAN
[2018-12-19 20:08] VITALS: BP 107/62
[2018-12-19] MEDS: QUETIAPINE FUMARATE 25 MG TABLET PO SCH (21:20)
[2018-12-20 08:00] VITALS: BP 102/53
[2018-12-20] MEDS: DIVALPROEX SODIUM 250 MG TABLET.DR PO SCH ×3 (08:13→16:32)
[2018-12-20] MEDS: MULTIVITAMINS,THERAGRAN 1 UDTAB TABLET PO SCH (08:13)
[2018-12-20] MEDS: THIAMINE HCL 100 MG TABLET PO SCH (08:13)
[2018-12-20] MEDS: ASPIRIN 81 MG TAB.CHEW PO SCH (08:13)
[2018-12-20] MEDS: Z GUARD REMEDY 2 OZ OINT TP SCH ×2 (08:16→16:34)
--- NOTE | 2018-12-20 12:12 | NUR ---
GPS RN NOTE: PT REFUSED SKIN ASSESSMENT
[2018-12-20 16:00] VITALS: BP 100/54
--- NOTE | 2018-12-20 19:30 | NUR ---
GPS RN NOTE, RECEIVED PATIENT AWAKE AND IN BED, NO S/S OR COMPLAINTS OF PAIN AT THIS TIME. PATIENT IS DISPLAYING NO S/S OF APPARENT DISTRESS AT THIS TIME. PATIENT BREATHING IS UNLABORED WITH EQUAL RISE AND FALL OF THE CHEST. PATIENT IS GUAMANIAN SPEAKING ONLY. PATIENT IS ALERT AND ORIENTED X 2 ON ROOM AIR WITH A SPO2 OF 94 %. PATIENT IS MED COMPLAINT, DISORGANIZED, ANXIOUS,PACING, COOPERATIVE, AND NEEDS REORIENTATION. PATIENT IS REFUSING SKIN ASSESSMENT. PATIENT DENIES SUICIDE AND HOMICIDAL IDEATIONS AT THIS TIME. PATIENT ASSISTED WITH TURNING AND REPOSITIONING Q2HR AND PRN FOR COMFORT AND CIRCULATION. PATIENT HAS NO NEEDS AT THIS TIME. PATIENT EDUCATED ON THE USE OF THE CALL SINGH. PATIENT BED SIDE RAILS ARE UP X 2 FOR SAFETY, BED IS LOCKED, AND LOW WILL CONTINUE TO MONITOR AND MAINTAIN SAFETY.
[2018-12-20 20:40] VITALS: BP 96/66
[2018-12-20] MEDS: QUETIAPINE FUMARATE 25 MG TABLET PO SCH (21:53)
--- NOTE | 2018-12-20 21:53 | NUR ---
GPS RN NOTE, PATIENT REFUSED SEROQUEL 50 MG PO HS. OFFERED SEROQUEL THREE TIMES AND STILL PATIENT REFUSED STATING, " NO , NO, I DON'T WANT IT ". EDUCATED PATIENT ON THE RISKS AND BENEFITS OF TAKING AND REFUSING AFOREMENTIONED MEDICATION. WILL CONTINUE TO MONITOR THIS PATIENT.
[2018-12-21 08:00] VITALS: BP 110/59
[2018-12-21] MEDS: DIVALPROEX SODIUM 250 MG TABLET.DR PO SCH ×3 (09:05→18:05)
[2018-12-21] MEDS: ASPIRIN 81 MG TAB.CHEW PO SCH (09:05)
[2018-12-21] MEDS: THIAMINE HCL 100 MG TABLET PO SCH (09:05)
[2018-12-21] MEDS: MULTIVITAMINS,THERAGRAN 1 UDTAB TABLET PO SCH (09:05)
[2018-12-21] MEDS: Z GUARD REMEDY 2 OZ OINT TP SCH ×2 (09:08→17:00)
--- NOTE | 2018-12-21 11:09 | NUR ---
SW contacted pts daughter in law Serenity [phone] who stated that pt needs SNF placement as she is unable to live alone and requires a higher level of care.
--- NOTE | 2018-12-21 13:54 | NUR ---
INITIAL DISCHARGE PLAN: Per daughter in law Serenity [phone] pt needs SNF placement. SW will help form a safe and proper discharge in collaboration with .
[2018-12-21 16:00] VITALS: BP 107/63
[2018-12-21 20:23] VITALS: BP 107/69
[2018-12-21] MEDS: QUETIAPINE FUMARATE 25 MG TABLET PO SCH (22:46)
[2018-12-22 08:00] VITALS: BP 115/63
[2018-12-22] MEDS: THIAMINE HCL 100 MG TABLET PO SCH (08:36)
[2018-12-22] MEDS: MULTIVITAMINS,THERAGRAN 1 UDTAB TABLET PO SCH (08:36)
[2018-12-22] MEDS: Z GUARD REMEDY 2 OZ OINT TP SCH ×2 (08:36→17:30)
[2018-12-22] MEDS: DIVALPROEX SODIUM 250 MG TABLET.DR PO SCH ×3 (08:36→17:30)
[2018-12-22] MEDS: ASPIRIN 81 MG TAB.CHEW PO SCH (08:36)
[2018-12-22 16:00] VITALS: BP 100/56
--- NOTE | 2018-12-22 19:30 | NUR ---
GPS RN NOTE, RECEIVED PATIENT AWAKE AND IN BED, NO S/S OR COMPLAINTS OF PAIN AT THIS TIME. PATIENT IS DISPLAYING NO S/S OF APPARENT DISTRESS AT THIS TIME. PATIENT BREATHING IS UNLABORED WITH EQUAL RISE AND FALL OF THE CHEST. PATIENT IS ICELANDIC SPEAKING ONLY. PATIENT IS ALERT AND ORIENTED X 2 ON ROOM AIR WITH A SPO2 OF 94 %. PATIENT IS MED COMPLAINT, DISORGANIZED, ANXIOUS, PACING, COOPERATIVE, AND NEEDS REORIENTATION. PATIENT DENIES SUICIDE AND HOMICIDAL IDEATIONS AT THIS TIME. PATIENT ASSISTED WITH TURNING AND REPOSITIONING Q2HR AND PRN FOR COMFORT AND CIRCULATION. PATIENT HAS NO NEEDS AT THIS TIME. PATIENT EDUCATED ON THE USE OF THE CALL SINGH. PATIENT BED SIDE RAILS ARE UP X 2 FOR SAFETY, BED IS LOCKED, AND LOW WILL CONTINUE TO MONITOR AND MAINTAIN SAFETY.
[2018-12-22 20:47] VITALS: BP_SYST 114; BP_SYST 154; BP_DIAS 65; BP_DIAS 68
[2018-12-22] MEDS: QUETIAPINE FUMARATE 25 MG TABLET PO SCH (21:01)
[2018-12-23 08:00] VITALS: BP 105/66
[2018-12-23] MEDS: ASPIRIN 81 MG TAB.CHEW PO SCH (08:16)
[2018-12-23] MEDS: THIAMINE HCL 100 MG TABLET PO SCH (08:17)
[2018-12-23] MEDS: MULTIVITAMINS,THERAGRAN 1 UDTAB TABLET PO SCH (08:17)
[2018-12-23] MEDS: DIVALPROEX SODIUM 250 MG TABLET.DR PO SCH ×3 (08:17→17:31)
[2018-12-23] MEDS: Z GUARD REMEDY 2 OZ OINT TP SCH ×2 (08:18→17:32)
--- NOTE | 2018-12-23 11:22 | NUR ---
PC Hearing Notification: SW contacted pts daughter in law Serenity ([phone]) and informed her about the hearing and what it entails.
[2018-12-23 16:00] VITALS: BP 115/69
--- NOTE | 2018-12-23 16:08 | NUR ---
Sales Strategy Manager Group Session-- Goal: Patient will attend group being held today from 11am -11:45 in the activities room and participate and/or actively listen to peers and be respectful. Intervention: SW invited patient to attend group session with peers regarding: the goal or positive outcome/s each pt. would like to see happen as a result of their stay in [facility]. SW respected patient�s self-determination and will continue to invite patient to future group sessions. Response: Patient declined to participate in today�s group social services manager session. Plan: Patient will be invited to attend next social services manager group held.
[2018-12-23 19:54] VITALS: BP 100/64
[2018-12-23] MEDS: QUETIAPINE FUMARATE 25 MG TABLET PO SCH (21:12)
[2018-12-24 08:00] VITALS: BP 123/65
[2018-12-24] MEDS: MULTIVITAMINS,THERAGRAN 1 UDTAB TABLET PO SCH (08:28)
[2018-12-24] MEDS: ASPIRIN 81 MG TAB.CHEW PO SCH (08:28)
[2018-12-24] MEDS: THIAMINE HCL 100 MG TABLET PO SCH (08:28)
[2018-12-24] MEDS: DIVALPROEX SODIUM 250 MG TABLET.DR PO SCH ×3 (08:29→17:40)
[2018-12-24] MEDS: Z GUARD REMEDY 2 OZ OINT TP SCH ×2 (08:29→17:41)
--- NOTE | 2018-12-24 09:21 | NUR ---
CARL faxed SNF referral to Jo Ann, production material coordinator at [facility] Address: [address] [facility], [place] [address] for review.
--- NOTE | 2018-12-24 11:59 | NUR ---
SW received a call from Jo Ann, heart coordinator at [facility] Address: [address] [facility], [place] [address] stating pt has been accepted to the facility.
--- NOTE | 2018-12-24 12:18 | NUR ---
CARL contacted pts daughter in law Serenity [phone] and informed her pt was being discharged tomorrow Friday12/25/18 to [facility]. Serenity agreed with discharge plan.
[2018-12-24 16:22] VITALS: BP 107/58
[2018-12-24 20:00] VITALS: BP 103/66
[2018-12-24] MEDS: QUETIAPINE FUMARATE 25 MG TABLET PO SCH (21:37)
[2018-12-25 08:00] VITALS: BP 133/79
[2018-12-25] MEDS: DIVALPROEX SODIUM 250 MG TABLET.DR PO SCH ×2 (08:10→12:22)
[2018-12-25] MEDS: ASPIRIN 81 MG TAB.CHEW PO SCH (08:10)
[2018-12-25] MEDS: THIAMINE HCL 100 MG TABLET PO SCH (08:10)
[2018-12-25] MEDS: MULTIVITAMINS,THERAGRAN 1 UDTAB TABLET PO SCH (08:10)
[2018-12-25] MEDS: Z GUARD REMEDY 2 OZ OINT TP SCH (08:12)
--- NOTE | 2018-12-25 11:08 | NUR ---
DISCHARGE NOTE: Pt will be discharged at 1:00pm via [facility] [address] [facility] [address] . Pts daughter in law Serenity [phone] has been notified and agrees with discharge plan. Pts mood is euthymic with congruent affect. Pt denied suicidal/homicidal ideation and denied visual/auditory hallucinations. Pt will be under the care of Psychiatrist: Dr. Juares [address] [address] [phone] and Storeroom Keeper: Dr Chan Address: [address] [place] [phone] . The multidisciplinary exit care form was done, printed, signed, and given to the patient.
--- NOTE | 2018-12-25 13:49 | NUR ---
GPS RN NOTE: PT DISCHARGE TO [facility] (SNF). PT IN STABLE CONDITION , AMBULATORY SELF CARE, DENIES SI/HI, COMPLIANT WITH MEDICATIONS. PT PAPUA [place] SPEAKER, REFUSED TO DO SKIN ASSESSMENT REFUSED TO SHOWER, A/OX2.EXIT CARE DONE, PRINTED PT REFUSED TO SIGN. PT SON NOTIFIED ALL BELONGINGS AND VALUABLES RETURNED TO PT. REPORT GIVEN TO JETHRO EL RN.
== END 2018-12-25 13:40 | DRG 885 ==
LOC: GPS 15:02
PROVIDERS: ADMIT Psychiatry & Neurology Psychiatry; ATTEND Internal Medicine
DX: F23 Brief psychotic disorder (principal); E87.1 Hypo-osmolality and hyponatremia; F03.90 Unspecified dementia, unspecified severity, without behavioral disturbance, psychotic disturbance, mood disturbance, and anxiety; F32.9 Major depressive disorder, single episode, unspecified; F41.9 Anxiety disorder, unspecified; I10 Essential (primary) hypertension; E86.1 Hypovolemia; F10.20 Alcohol dependence, uncomplicated

== ENCOUNTER 2020-05-21 19:44 | Emergency (ER) | payer MEDICARE, OTHER ==
[~2020-05-21] VITALS: Ht 162.6 cm; Wt 63.5 kg
[~2020-05-21 19:44] MED LIST changes: +ACET-868 PO; +ALLA266C2 TP; -DIVA250T4 PO; +MAG30ORA PO; +MAGN400O6 PO; +ONDA4TAB11 PO; -PRIM50TA PO; -QUET25TA PO
[2020-05-21 20:25] VITALS: BP 116/74
[2020-05-21] MEDS ORDERED: HYDROCODONE/APAP 5/325MG TABLET ONE (20:50)
[2020-05-21] MEDS ORDERED: ONDANSETRON 4 MG TAB.RAPDIS ONE (20:50)
[2020-05-21] MEDS ORDERED: IBUPROFEN 600 MG TABLET ONE (20:50)
--- NOTE | 2020-05-21 20:55 | NUR ---
RADIOLOGY AT BEDSIDE FOR XRAY
[2020-05-21] MEDS ORDERED: IBUPROFEN 600 MG TABLET PO ONE (21:00)
[2020-05-21] MEDS ORDERED: HYDROCODONE/APAP 5/325MG TABLET PO ONE (21:00)
[2020-05-21] MEDS ORDERED: ONDANSETRON 4 MG TAB.RAPDIS SL ONE (21:00)
--- NOTE | 2020-05-21 23:05 | NUR ---
Patient discharged to home in stable condition. Written and verbal after care instructions given. Patient verbalizes understanding of instruction. ambulatory with a steady gait noted. pt aaox4 no acute distress noted, resp even and unlabored. pt family member at bedside to take pt home.
== END 2020-05-21 23:06 | disposition home or self-care (01) ==
LOC: ER 19:49
DX: S52.592A Other fractures of lower end of left radius, initial encounter for closed fracture (principal); I11.9 Hypertensive heart disease without heart failure; Z79.82 Long term (current) use of aspirin; Z79.899 Other long term (current) drug therapy; W22.8XXA Striking against or struck by other objects, initial encounter; Y93.89 Activity, other specified; Y92.89 Other specified places as the place of occurrence of the external cause; Y99.8 Other external cause status
CPT/HCPCS: 73110; 73130; 73200; 99284; Q0162